=== PATIENT | male | born 1995 | race Caucasian/White ===

== ENCOUNTER 2020-06-23 04:08 | Emergency (ER) | payer OTHER, SELFPAY ==
--- NOTE | 2020-06-23 04:09 | ECG_ITS ---
Test Reason : CHEST PAIN Blood Pressure : / mmHG Vent. Rate : 088 BPM Atrial Rate : 088 BPM P-R Int : 138 ms QRS Dur : 120 ms QT Int : 374 ms P-R-T Axes : 048 020 011 degrees QTc Int : 452 ms Sinus rhythm with occasional Premature ventricular complexes RSR' or QR pattern in V1 suggests right ventricular conduction delay Abnormal ECG When compared with ECG of 11-FEB-2020 22:40, No significant change was found Referred By: Momo Neri Electronically Signed By:TESSA ALMARAZ
[2020-06-23 04:32] VITALS: BP 184/116; PULSE 90; RESP 16; TEMP 36.9; O2SAT 99; BMI 22.8
--- NOTE | 2020-06-23 04:32 | ED.ARRPALP ---
HPI - Arrhythmia/Palpitations General Chief Complaint: Chest Pain Stated Complaint: CHEST PAIN Time Seen by Provider: 06/23/20 04:49 Source: patient Mode of arrival: ambulatory Limitations: no limitations History of Present Illness HPI narrative: Started amliodipine a few days ago and now has not taken his medication. He can't sleep because of palpitations. He has had a holter monitor prior and diagnosed with PVC's MD complaint: heart racing , skipped beats and palpitations Onset (ago): hour(s) (8) Duration: intermittent Severity: moderate Context: occurred during rest Arrhythmia history: other (PVCs) Associated symptoms: denies other symptoms Related Data Previous Rx's Medication Instructions Recorded metoprolol succinate [Toprol XL] 50 mg PO DAILY #20 tab 06/23/20 Allergies Allergy/AdvReac Type Severity Reaction Status Date / Time No Known Allergies Allergy Unverified 06/09/20 16:19 Review of Systems Review of Systems: Yes all other systems are reviewed and are negative [facility] Social History Social History Advance Directives: No Advance Directives Information Provided: No Physical Exam Vital Signs and I&O and Narrative: Vital Signs and I&O: Vital Signs Temp 98.4 F 06/23/20 04:32 Pulse 80 06/23/20 05:30 Resp 14 06/23/20 05:30 BP 175/102 H 06/23/20 05:30 Pulse Ox 99 06/23/20 05:30 Intake & Output 06/22/20 06/22/20 06/23/20 06:59 18:59 06:59 Weight 64 kg Body Mass Index 22.7 Const: General: cooperative Nutritional Appearance: overweight Orientation/consciousness: patient oriented x3 Limitations: no limitations HENMT: Head: Yes normal to inspection Ears: hearing grossly normal bilaterally General nose exam: Normal external nose present Throat: Yes posterior oropharynx normal Neck: Neck: Yes normal visual inspection Chest: Chest palpation & inspection: normal inspection of the chest Resp: Effort & Inspection: normal respiratory effort Auscultation: clear to auscultation bilaterally Cardio: Rate: regular rate and Other (occaisional premature beats) Heart sounds: S1 normal heart sound present and S2 normal heart sound present GI: Inspection: Yes normal to inspection Palpation (GI): Soft to palpation and No hepatosplenomegaly present : General: Yes no CVA tenderness Back/Spine/Pelvis: Back: no CVA tenderness Skin: General skin exam: no rashes or lesions noted Neuro: General: patient oriented x3 Gait exam (Neuro): Normal gait present Motor exam (neuro): 5/5 motor strength present throughout Course Reevaluation(s) Reevaluation #1: blood pressure down, fewer PVCs will dc home MDM - Arrhythmia/Palpitations MDM Narrative Medical decision making narrative: EKG with RBBB and PVCs, no electrolyte abnormalities Differential Diagnosis Differential diagnosis: Likely palpitations and ventricular premature beats Lab Data Result diagrams: 06/23/20 05:24 06/23/20 05:24 Labs: Lab Results 06/23/20 06/23/20 Range/Units 05:24 05:24 WBC 12.2 H (4.8-10.8) X10*3/uL RBC 5.43 (4.60-5.80) X10*6/uL Hgb 15.0 (14.0-18.0) g/dl Hct 45.2 (42-52) % MCV 83.2 (80-98) fL MCH 27.6 (27.0-33.0) pg MCHC 33.2 (31.0-36.0) g/dl RDW 13.2 (11.0-16.0) % Plt Count 290 (160-400) X10*3/uL MPV 10.7 (9.4-12.4) fL Absolute Nucleated RBC 0.000 (0.0-0.012) X10*3/uL Nucleated RBC % (auto) 0.0 (0.0-0.2) /100WBC Sodium 140 (135-145) mmol/L Potassium 3.4 (3.3-5.1) mmol/l Chloride 104 (96-108) mmol/L Carbon Dioxide 26 (22-29) mmol/L Anion Gap 13 (12-20) BUN 10 (9-16) mg/dL Creatinine 0.81 (0.5-1.4) mg/dL Estim Creat Clear Calc 124.7 Estimated GFR > 60 Random Glucose 90 (60-115) mg/dL Calcium 9.1 (8.4-10.2) mg/dL Magnesium 2.2 (1.6-2.6) mg/dL Discharge Plan Discharge Clinical Impression: Heart palpitations, Beat, premature ventricular BP (high blood pressure) Qualifiers: Hypertension type: essential hypertension Qualified Code(s): I10 - Essential (primary) hypertension Patient Disposition: Home, Self-Care Instructions: Chronic Hypertension (ED) Additional Instructions: Call your physician today for followup Prescriptions: New metoprolol succinate [Toprol XL] 50 mg tablet extended release 24 hr 50 mg PO DAILY Qty: 20 RF: 0 EKG interpretations EKG EKG results cardiology: interpreted by ERMD, sinus rhythm, normal ST/T and no acute changes Blocks, axis, hypertrophy, ST abn AV and intraventricular conduction: right bundle branch block (fixed/intermittent, complete/incomplete)
[2020-06-23 04:44] VITALS: BMI 22.7
[2020-06-23] MEDS: Metoprolol Succinate ER 50 MG TAB.ER.24H PO (05:26)
[2020-06-23 05:30] VITALS: BP 175/102; PULSE 80; RESP 14; O2SAT 99
[2020-06-23 05:34] LABS: Hematocrit 45.2 % (42-52); Mean Corpuscular HGB Conc 33.2 g/dl (31.0-36.0); Mean Corpuscular Hemoglobin 27.6 pg (27.0-33.0); Mean Corpuscular Volume 83.2 fL (80-98); Mean Platelet Volume 10.7 fL (9.4-12.4); Platelet Count 290 X10*3/uL (160-400); Red Blood Count 5.43 X10*6/uL (4.60-5.80); Red Cell Distribution Width 13.2 % (11.0-16.0); White Blood Count 12.2 X10*3/uL (4.8-10.8)
[2020-06-23 05:58] LABS: Anion Gap 13 (12-20); Blood Urea Nitrogen 10 mg/dL (9-16); Calcium 9.1 mg/dL (8.4-10.2); Carbon Dioxide 26 mmol/L (22-29); Chloride 104 mmol/L (96-108); Creatinine Clr Calc Pharmacy 124.7; Estimated Glomerular Filt Rate > 60; Glucose Random 90 mg/dL (60-115); Magnesium 2.2 mg/dL (1.6-2.6); Potassium 3.4 mmol/l (3.3-5.1); Sodium 140 mmol/L (135-145)
[2020-06-23 07:15] VITALS: BP 173/108; PULSE 84; RESP 18
== END 2020-06-23 07:26 | disposition home or self-care (01) ==
PROVIDERS: Emergency Provider Emergency Medicine; PCP Physician Assistant
DX: I49.3 Ventricular premature depolarization (principal); R00.2 Palpitations; I45.10 Unspecified right bundle-branch block; I10 Essential (primary) hypertension
CPT/HCPCS: 36415; 80048; 83735; 85027; 93005; 93010; 99283

== ENCOUNTER 2020-08-05 11:58 | Outpatient (REF) | payer OTHER, SELFPAY ==
[2020-08-05 13:23] LABS: MANUAL DIFF FLAG NO
[2020-08-05 13:34] LABS: Basophils Percent Auto 0.4 % (0-2); Eosinophils Absolute Auto 0.1 X10*3/uL (0.0-0.4); Eosinophils Percent Auto 1.3 % (0-4); Hematocrit 44.6 % (42-52); Hemoglobin 14.6 g/dl (14.0-18.0); Imm Gran Abs Auto 0.11 X10*3/uL (0.00-0.03); Imm Gran Pct Auto 1.1 % (0.0-0.4); Lymphocytes Absolute Auto 2.2 X10*3/uL (1.2-4.9); Lymphocytes Percent Auto 22.1 % (20-40); Mean Corpuscular HGB Conc 32.7 g/dl (31.0-36.0); Mean Corpuscular Volume 85.6 fL (80-98); Mean Platelet Volume 10.9 fL (9.4-12.4); Monocytes Absolute Auto 0.8 X10*3/uL (0.1-1.2); Monocytes Percent Auto 7.6 % (2-11); Neutrophils Absolute Auto 6.8 X10*3/uL (2.0-8.3); Neutrophils Percent Auto 67.5 % (45-73); Platelet Count 263 X10*3/uL (160-400); Red Blood Count 5.21 X10*6/uL (4.60-5.80); Red Cell Distribution Width 13.1 % (11.0-16.0)
[2020-08-05 13:48] LABS: Estimated Average Glucose 100 mg/dL; Hemoglobin A1c % 5.1 %
[2020-08-05 14:01] LABS: Alanine Aminotransferase 30 U/L (0-40); Albumin Level 4.3 g/dL (3.5-5.0); Alkaline Phosphatase 109 U/L (39-117); Anion Gap 12 (12-20); Aspartate Amino Transferase 17 U/L (5-37); Bilirubin Total 0.5 mg/dL (0.0-1.0); Blood Urea Nitrogen 12 mg/dL (9-16); Calcium 8.3 mg/dL (8.4-10.2); Carbon Dioxide 29 mmol/L (22-29); Chloride 102 mmol/L (96-108); Estimated Glomerular Filt Rate > 60; Glucose Fasting 77 mg/dL (60-99); Potassium 4.1 mmol/l (3.3-5.1); Sodium 139 mmol/L (135-145)
[2020-08-05 14:22] LABS: TSH reflex Free T4 1.58 mIU/mL (0.32-4.0)
== END 2020-08-05 11:59 | disposition home or self-care (01) ==
LOC: HO.LAB 11:58
PROVIDERS: PCP Physician Assistant; Visit Provider Physician Assistant
DX: I10 Essential (primary) hypertension (principal)
CPT/HCPCS: 36415; 80053; 82043; 83036; 84443; 85025

== ENCOUNTER → 2020-09-12 14:47 | Outpatient (BNVA) | payer OTHER, SELFPAY | PROVIDERS: PCP Physician Assistant; Visit Provider Internal Medicine Cardiovascular Disease | DX: I10 Essential (primary) hypertension (principal); I49.3 Ventricular premature depolarization | CPT/HCPCS: 93005; 99202 ==

== ENCOUNTER → 2020-10-05 13:40 | Outpatient (REF) | payer OTHER, SELFPAY ==
--- NOTE | 2020-10-05 13:44 | CA_ITS ---
Transthoracic Echocardiogram Patient (Last, First, Middle): Doron Cano, Gender: Male Date of : 1995 Age: 25 Procedure Date: 10/05/2020 Procedure Type: Transthoracic Echocardiogram Location: OP Height: 167.64 cm Weight: 72.58 kg BSA: 1.82 m2 Heart Rate: bpm BP: 150 / 90 mmHg Adult Education Manager: ABELARDO Referring MD: Curt Parry MD Abstractor: Yoni Santana MD Symptoms: I10 - Essential (primary) hypertension Study Quality: Fair ECG Rhythm: Sinus Conclusions: - Essentially normal study Findings Left Ventricle Normal left ventricular size, thickness, and systolic function. The visually estimated ejection fraction is between 60-65%. There is no evidence of regional wall motion abnormalities. Diastolic function is normal for age. Right Ventricle Normal right ventricular cavity size and systolic function. Atria The left atrium is likely dilated. Interatrial shunt cannot be excluded. The right atrium is likely dilated. Aortic Valve The aortic valve structure and function is likely normal. There is no aortic valve stenosis. There is no aortic valve regurgitation. Mitral Valve Normal mitral valve structure and function. There is trace mitral valve regurgitation. There is no mitral valve stenosis. Pulmonic Valve The pulmonic valve was not well visualized. Tricuspid Valve Likely normal tricuspid valve structure and function. There is trace tricuspid valve regurgitation. The right ventricular systolic pressure is normal. The right ventricular systolic pressure is 33 mmHg. There is no evidence of pulmonary hypertension. Great Vessels All visible segments of the aorta are normal in size. The pulmonary artery was not well visualized. Venous The inferior vena cava was not well visualized. Pericardium/Pleural There is no evidence of pericardial effusion. Prior Study Comparison No significant change compared to prior study dated: 09/02/2015. Measurements 2D Linear Measurements IVSd: 1.20 0.6-0.9/0.6-1.0 cm LVIDd: 4.68 3.9-5.3/4.2-5.9 cm LVIDd Index: 2.57 2.4-3.2/2.2-3.1 cm/m2 LVIDs: 3.18 2.0-3.6 cm LVPWd: 1.04 0.7-1.1 cm Ao Root: 2.60 2.1-3.5 cm LA Diam: 3.60 2.7-3.8/3.0-4.0 cm LAIDs Index: 1.98 1.5-2.3 cm/m2 LV Mass: 238.03 67-162/88-224 g LV Mass Index: 130.78 43-95/49-115 g/m2 LVOT Diam: 2.10 3.0+(-)1.3 cm 2D Systolic Function EF 4C: 59.90 >55% EF 2C: 56.90 >55% EF BiP: 57.00 >55% Mitral Valve MV Pk E: 0.80 MV PK A: 0.31 MV Decel Time: 193.00 E/A: 2.60 E'Lateral: 13.30 E'Medial: 11.20 E/E' Med: 7.10 E/E' Lat: 6.00 PHT: 56.00 MVA PHT: 3.93 Decel Alpine: 4.15 Aortic Valve AoV Pk Adam: 1.26 AoV Pk Grad: 6.00 LVOT LVOT Pk Adam: 1.00 LVOT Mn Adam: 0.67 LVOT VTI: 0.20 LVOT Pk Grad: 4.00 LVOT Mn Grad: 2.00 LVOT Diam: 2.10 LVOT Area: 3.46 Diastolic Function MV Pk E: 0.80 MV Pk A: 0.31 E/A: 2.60 E'Medial: 11.20 E/E' Med: 7.10 E' Laterial: 13.30 E/E' Lat: 6.00 Tricuspid Valve TR Pk Adam: 2.73 TR Pk Grad: 30.00 RA Press: 3.00 RVSP: 33.00 Great Vessels Aorta Ao Root-2D: 2.60 2.0-3.7 cm Ao Asc: 2.60 2.1-3.4 cm Updated in Other Vendor System with Status of Final Yoni Santana MD electronically signed on 10/06/2020 9:08:18 AM with status of Final
== END ==
LOC: HO.CARD 13:40
PROVIDERS: Visit Provider Internal Medicine Cardiovascular Disease
DX: I10 Essential (primary) hypertension (principal)
CPT/HCPCS: 93306; Q9957

== ENCOUNTER 2020-10-10 08:36 | Outpatient (REF) | payer OTHER, SELFPAY ==
--- NOTE | 2020-10-10 | US_ITS ---
EXAMINATION: US RENAL AND US DOPPLER RETROPERITONEAL LIMITED (RENAL ONLY) CLINICAL INFORMATION: Essential hypertension COMPARISON: None TECHNIQUE: Routine renal ultrasound followed by retroperitoneal renal and aorta Doppler was performed. FINDINGS: RIGHT KIDNEY: 12.6 x 4.7 x 5.2 cm (SAG x AP x TRV). The kidney is normal in size, contour, and echogenicity. Renal cortical thickness is normal. No calculi or focal parenchymal lesions. No hydronephrosis. LEFT KIDNEY: 11.0 x 6.3 x 4.8 cm cm (SAG x AP x TRV). The kidney is normal in size, contour, and echogenicity. Renal cortical thickness is normal. No calculi or focal parenchymal lesions. No hydronephrosis. RENAL DOPPLER: RIGHT KIDNEY: Renal artery velocity proximal measures 114 cm/s; mid segment measures 221 cm/s; distal segment measures 192 cm/s. Renal aortic ratio cannot be obtained as peak systolic velocity of aorta measures 131 cm/s and cannot be used to calculate the ratio. The average segmental resistive index measures 0.71. LEFT KIDNEY: Renal artery velocity proximal segment measures 105 cm/s; mid segment measures 159 cm/s; distal segment measures 186 cm/s. Renal aortic ratio cannot be calculated. The average segmental resistive index measures 0.69. US/US renal BI IMPRESSION: 1. Unremarkable renal ultrasound. 2. Slightly elevated velocity in mid segment right renal artery but normal resistive index. This could be secondary to renal parenchymal disease. 3. There is no significant stenosis in the left renal artery. The parameters are normal.
--- NOTE | 2020-10-10 08:42 | US_ITS ---
EXAMINATION: ULTRASOUND RENAL DOPPLER US/US renal doppler FINDINGS/IMPRESSION: Ultrasound renal Doppler is dictated with ultrasound kidneys.
== END 2020-10-10 08:37 | disposition home or self-care (01) ==
LOC: HO.US 08:36
PROVIDERS: Visit Provider Internal Medicine Cardiovascular Disease
DX: I10 Essential (primary) hypertension (principal)
CPT/HCPCS: 76775; 93975

== ENCOUNTER → 2020-11-30 14:12 | Outpatient (BNVA) | payer OTHER, SELFPAY | PROVIDERS: PCP Physician Assistant; Visit Provider Internal Medicine Cardiovascular Disease | DX: I10 Essential (primary) hypertension (principal) | CPT/HCPCS: 99212 ==

== ENCOUNTER 2020-12-28 13:24 | Outpatient (REF) | payer OTHER, SELFPAY ==
[2020-12-28 13:53] LABS: COVID-19 Test Negative (Negative)
== END 2020-12-28 13:25 | disposition home or self-care (01) ==
LOC: HO.LAB 13:24
PROVIDERS: Visit Provider Internal Medicine
DX: Z20.822 Contact with and (suspected) exposure to COVID-19 (principal)
CPT/HCPCS: 36415; 87635; C9803

== ENCOUNTER 2021-01-08 08:24 | Emergency (ER) | payer OTHER, SELFPAY ==
--- NOTE | 2021-01-08 | ECG_ITS ---
Test Reason : CHEST PAIN Blood Pressure : / mmHG Vent. Rate : 081 BPM Atrial Rate : 081 BPM P-R Int : 140 ms QRS Dur : 112 ms QT Int : 374 ms P-R-T Axes : 061 018 025 degrees QTc Int : 434 ms Normal sinus rhythm Incomplete right bundle branch block Borderline ECG When compared with ECG of 23-JUN-2020 04:09, Premature ventricular complexes are no longer Present Referred By: Generic ED Physician Electronically Signed By:Curt Parry
--- NOTE | ~2021-01-08 | XR_ITS ---
EXAMINATION: XR CHEST CLINICAL INFORMATION: Chest pain. COMPARISON: None TECHNIQUE: 2 views of the chest were obtained. FINDINGS: No significant abnormality is noted involving the heart, lungs, mediastinum, bony thorax or soft tissues. XR/XR chest 2V IMPRESSION: Unremarkable examination.
[2021-01-08 08:27] VITALS: BP 181/104; PULSE 88; RESP 15; TEMP 37.2; O2SAT 98; BMI 42.7
[2021-01-08 10:28] VITALS: BP 176/95; PULSE 79; RESP 16; O2SAT 96
--- NOTE | 2021-01-08 12:09 | ED.ARRPALP ---
HPI - Arrhythmia/Palpitations General Chief Complaint: Arrhythmia/Palpitations Stated Complaint: PALPATIONS Time Seen by Provider: 01/08/21 08:37 Source: patient Mode of arrival: ambulatory Limitations: no limitations History of Present Illness HPI narrative: 26-year-old male with a past medical history of hypertension here with complaints of a rapid, pounding heartbeat with some chest discomfort since 02:00. The patient tells me it woke him from his sleep. He had no associated shortness of breath, nausea, diaphoresis. His symptoms continued and so he brought himself to the emergency department. He is also complaining of a generalized headache but did not take his blood pressure medications this morning. No vision changes, nausea, vomiting. The patient tells me that he has had symptoms of a fast or pounding heartbeat for quite some time and has been seen by Cardiology. He tells me he has an upcoming appointment to have a Holter monitor on January 16. He has had blood work, echocardiogram with unknown cause per patient. Due to uncontrolled hypertension he has also had a renal ultrasound which showed no evidence of renal artery stenosis. He is currently taking lisinopril 40 mg and metoprolol 100 mg. His dose of lisinopril was increased [address] Parry by cardiology. Denies fevers, chills. His mom recently had COVID-19 but he was tested and he is negative. No leg swelling or pain. No recent travel or sick exposure. Denies anxiety or stress. MD complaint: rapid heart beat and heart racing Related Data Previous Rx's Medication Instructions Recorded lisinopril 40 mg tablet 40 mg PO DAILY #60 tab 11/30/20 omeprazole 20 mg capsule,delayed 20 mg PO DAILY #30 cap 12/04/20 release metoprolol succinate 100 mg 100 mg PO DAILY #90 tab 12/30/20 tablet,extended release 24 hr Allergies Allergy/AdvReac Type Severity Reaction Status Date / Time amlodipine AdvReac Chest Pain Verified 11/16/20 17:45 Review of Systems Review of Systems: Yes all other systems are reviewed and are negative Constitutional: Constitutional: Reports no additional constitutional complaints, Denies body ache(s), Denies chills, Denies fever(s), Reports headache(s) and Denies weakness Eyes: Eyes: Reports no additional eye complaints and Denies change in vision ENT: Reports system reviewed and no additional complaints, except as documented, Denies dizziness, Reports headache(s), Denies nasal congestion, Denies nasal discharge and Denies neck pain Cardiovascular: Cardiovascular: Reports no additional cardiovascular complaints, Denies chest pain, Denies leg edema, Reports palpitations and Denies dyspnea Respiratory: Respiratory: Reports no additional respiratory complaints, Denies cough and Denies dyspnea Gastrointestinal: Gastrointestinal: Reports no additional gastrointestinal complaints, Denies abdominal pain, Denies diarrhea, Denies nausea and Denies vomiting Genitourinary: Genitourinary: Denies urinary incontinence Musculoskeletal: Musculoskeletal: Reports no additional musculoskeletal complaints, Denies back pain, Denies arthralgias, Denies joint swelling, Denies neck pain, Denies numbness and Denies tingling Integumentary/Breasts: Skin/Breast: Reports system reviewed and no additional complaints, except as docu and Denies rash Neurologic: Reports system reviewed and no additional complaints, except as documented, Denies Abnormal speech present, Denies dizziness, Reports headache(s), Denies numbness, Denies tingling and Denies weakness Endocrine: Endocrine: Reports palpitations PMFSH Past Medical History Attestation statement: The following information was validated with the patient. Source: old records reviewed and nursing notes reviewed Surgical History History of hernia surgery No pertinent past surgical history [place] teeth removed Family History Family History Father ADHD HTN (hypertension) CAD (coronary artery disease) Hyperlipidemia Insomnia Dysautonomia Mother Eczema Migraines Social History Social History Alcohol intake: never Smoking Status: Never smoker Use of substances other than those prescribed or required for medical reasons: No Advance Directives: Yes Advance Directives Information Provided: No Advance Directives on File: No Physical Exam Vital Signs: Vital Signs: Last Vital Signs Temp 99.0 F 01/08/21 08:27 Pulse 85 01/08/21 13:20 Resp 16 01/08/21 13:20 BP 141/77 H 01/08/21 13:20 Pulse Ox 98 01/08/21 13:20 Body Mass Index 42.7 Const: General: cooperative, healthy appearing, comfortable and no acute distress Orientation/consciousness: patient oriented x3 Limitations: no limitations HENMT: Head: Yes normal to inspection Ears: hearing grossly normal bilaterally General nose exam: Normal external nose present Face and sinus: Yes normal facial exam Mouth: Normal oral and palatal mucosa present Throat: Yes posterior oropharynx normal Eyes: General: appearance normal, both eyes and all related structures Pupils: Equal, round and reactive pupils present Neck: Neck: Yes normal visual inspection Chest: Chest palpation & inspection: normal inspection of the chest Resp: Effort & Inspection: normal respiratory effort Auscultation: clear to auscultation bilaterally Cardio: Rate: regular rate Rhythm: regular rhythm Peripheral pulses: Peripheral pulses 2+ throughout GI: Inspection: Yes normal to inspection Palpation (GI): Soft to palpation and nontender Auscultation: normal bowel sounds Back/Spine/Pelvis: Thoracic/Lumbar Spine: thoracic and lumbar spine normal to inspection Skin: General skin exam: no rashes or lesions noted Neuro: General: patient oriented x3, no focal motor deficits and normal sensation to monofilament Cranial nerves: Yes Equal, round and reactive pupils present Cognition (Neuro): normal cognition Speech: No Abnormal speech present Gait exam (Neuro): Normal gait present Motor exam (neuro): 5/5 motor strength present throughout Extrem: General: Yes normal to inspection, Yes no pedal edema and Yes no calf tenderness Course Course Course Narrative: 26-year-old male here with complaints of a rapid, pounding heart rate since 02:00 which woke him from his sleep. On arrival the patient has a heart rate of 70 and regular. He does appear slightly anxious on arrival. He is hypertensive but did not take his morning high blood pressure medications. His symptoms of rapid and pounding heart rate seem to be going on for quite some time. He is followed by kiss machine operator and has an upcoming Holter monitor the end of this month. Will check labs, EKG, chest x-ray. Will give him his home medications for his blood pressure and reassess. 1315-labs are unremarkable. EKG shows no ischemic changes. Chest x-ray unremarkable. Blood pressure improved with his home medications to 141/77 from 175/99. Heart rate has been 70s to 80s with no ectopy here during his ED stay. Patient tells me that his symptoms have improved with his blood pressure trending down but he still does have some mild symptoms. He has a scheduled appointment with Cardiology and a Holter to be placed. I think that anxiety also is contributing to some of his symptoms. The patient was offered a low dose of antianxiety medications but he refused this. Reviewed worrisome signs and symptoms and when to return to the emergency department. Comfortable discharge home. MDM - Arrhythmia/Palpitations Medical Records Attestation: I reviewed the patient's medical records. Lab Data Attestation: I reviewed the patient's lab results. Result diagrams: 01/08/21 12:27 01/08/21 12: Labs: Lab Results 01/08/21 01/08/21 01/08/21 Range/Units 12: 12: 12:27 WBC 6.3 (4.8-10.8) X10*3/uL RBC 5.26 (4.60-5.80) X10*6/uL Hgb 14.9 (14.0-18.0) g/dl Hct 45.4 (42-52) % MCV 86.3 (80-98) fL MCH 28.3 (27.0-33.0) pg MCHC 32.8 (31.0-36.0) g/dl RDW 13.0 (11.0-16.0) % Plt Count 185 D (160-400) X10*3/uL MPV 10.1 (9.4-12.4) fL Immature Gran % (Auto) 0.6 H (0.0-0.4) % Neut % (Auto) 66.3 (45-73) % Lymph % (Auto) 18.6 L (20-40) % [place] % (Auto) 13.9 H (2-11) % Eos % (Auto) 0.3 (0-4) % Baso % (Auto) 0.3 (0-2) % Lymph # (Auto) 1.2 (1.2-4.9) X10*3/uL [place] # (Auto) 0.9 (0.1-1.2) X10*3/uL Eos # (Auto) 0.0 (0.0-0.4) X10*3/uL Baso # (Auto) 0.0 (0.0-0.2) X10*3/uL Abs Immat Gran (auto) 0.04 H (0.00-0.03) X10*3/uL Absolute Neuts (auto) 4.2 (2.0-8.3) X10*3/uL Absolute Nucleated RBC 0.000 (0.0-0.012) X10*3/uL Nucleated RBC % (auto) 0.0 (0.0-0.2) /100WBC Hold Blue Top SEE NOTE Sodium 141 (135-145) mmol/L Potassium 3.8 (3.3-5.1) mmol/L Chloride 101 (96-108) mmol/L Carbon Dioxide 27 (22-29) mmol/L Anion Gap 17 (12-20) BUN 16 (9-16) mg/dL Creatinine 0.79 (0.5-1.4) mg/dL Estim Creat Clear Calc 171.4 Estimated GFR > 60 Random Glucose 87 (60-115) mg/dL Calcium 9.5 D (8.4-10.2) mg/dL Magnesium 2.2 (1.6-2.6) mg/dL Total Bilirubin 0.4 (0.0-1.0) mg/dL Direct Bilirubin 0.2 (0.0-0.5) mg/dL AST 13 (5-37) U/L ALT 22 (0-40) U/L Alkaline Phosphatase 102 (39-117) U/L Troponin I High Sens (<3.5-35.0) ng/L Total Protein 7.2 (6.5-8.0) g/dL Albumin 4.5 (3.5-5.0) g/dL TSH 2.05 (0.32-4.0) uIU/mL 01/08/21 Range/Units 12:27 WBC (4.8-10.8) X10*3/uL RBC (4.60-5.80) X10*6/uL Hgb (14.0-18.0) g/dl Hct (42-52) % MCV (80-98) fL MCH (27.0-33.0) pg MCHC (31.0-36.0) g/dl RDW (11.0-16.0) % Plt Count (160-400) X10*3/uL MPV (9.4-12.4) fL Immature Gran % (Auto) (0.0-0.4) % Neut % (Auto) (45-73) % Lymph % (Auto) (20-40) % [place] % (Auto) (2-11) % Eos % (Auto) (0-4) % Baso % (Auto) (0-2) % Lymph # (Auto) (1.2-4.9) X10*3/uL [place] # (Auto) (0.1-1.2) X10*3/uL Eos # (Auto) (0.0-0.4) X10*3/uL Baso # (Auto) (0.0-0.2) X10*3/uL Abs Immat Gran (auto) (0.00-0.03) X10*3/uL Absolute Neuts (auto) (2.0-8.3) X10*3/uL Absolute Nucleated RBC (0.0-0.012) X10*3/uL Nucleated RBC % (auto) (0.0-0.2) /100WBC Hold Blue Top Sodium (135-145) mmol/L Potassium (3.3-5.1) mmol/L Chloride (96-108) mmol/L Carbon Dioxide (22-29) mmol/L Anion Gap (12-20) BUN (9-16) mg/dL Creatinine (0.5-1.4) mg/dL Estim Creat Clear Calc Estimated GFR Random Glucose (60-115) mg/dL Calcium (8.4-10.2) mg/dL Magnesium (1.6-2.6) mg/dL Total Bilirubin (0.0-1.0) mg/dL Direct Bilirubin (0.0-0.5) mg/dL AST (5-37) U/L ALT (0-40) U/L Alkaline Phosphatase (39-117) U/L Troponin I High Sens < 3.5 (<3.5-35.0) ng/L Total Protein (6.5-8.0) g/dL Albumin (3.5-5.0) g/dL TSH (0.32-4.0) uIU/mL Imaging Data Chest x-ray: Attestation: I personally reviewed and interpreted this imaging study as follows: Radiologist's impression: EXAMINATION: XR CHEST CLINICAL INFORMATION: Chest pain. COMPARISON: None TECHNIQUE: 2 views of the chest were obtained. FINDINGS: No significant abnormality is noted involving the heart, lungs, mediastinum, bony thorax or soft tissues. XR/XR chest 2V IMPRESSION: Unremarkable examination. ECG Data Attestation: I personally reviewed and interpreted this ECG as follows: ECG interpretation date: 01/08/21 ECG interpretation time: 08:43 Interpretation: Normal sinus rhythm with a rate of 81, normal CO, normal QRS, normal QT Discharge Plan Discharge Clinical Impression: HTN (hypertension), Palpitations Patient Disposition: Home, Self-Care Instructions: Heart Palpitations (ED), Hypertension (ED) Additional Instructions: Your blood pressure improved here after taking your scheduled medications. Your blood work, EKG and x-ray all looked unremarkable. Please keep your appointment with Cardiology and for your Holter monitor to be placed. Call your kiss machine operator tomorrow and let him know you were here. Prescriptions: No Action omeprazole 20 mg capsule,delayed release(DR/EC) 20 mg PO DAILY Qty: 30 RF: 3 metoprolol succinate 100 mg tablet extended release 24 hr 100 mg PO DAILY Qty: 90 RF: 0 lisinopril 40 mg tablet 40 mg PO DAILY Qty: 60 RF: 3 Referrals: Curt Parry MD [Physician] - 2 days Interventions: ED Discharge Assessment Last Done: 01/08/21 13:49 Discharge Date/Time: 01/08/21 13:50
[2021-01-08 12:15] VITALS: BP 176/95; PULSE 79
[2021-01-08] MEDS: Metoprolol Succinate ER 100 MG TAB.ER.24H PO (12:15)
[2021-01-08] MEDS: lisinopriL 40 MG TABLET PO (12:15)
[2021-01-08 12:31] LABS: MANUAL DIFF FLAG NO
[2021-01-08 12:32] LABS: Basophils Percent Auto 0.3 % (0-2); Eosinophils Percent Auto 0.3 % (0-4); Hematocrit 45.4 % (42-52); Hemoglobin 14.9 g/dl (14.0-18.0); Imm Gran Abs Auto 0.04 X10*3/uL (0.00-0.03); Imm Gran Pct Auto 0.6 % (0.0-0.4); Lymphocytes Absolute Auto 1.2 X10*3/uL (1.2-4.9); Lymphocytes Percent Auto 18.6 % (20-40); Mean Corpuscular HGB Conc 32.8 g/dl (31.0-36.0); Mean Corpuscular Hemoglobin 28.3 pg (27.0-33.0); Mean Corpuscular Volume 86.3 fL (80-98); Mean Platelet Volume 10.1 fL (9.4-12.4); Monocytes Absolute Auto 0.9 X10*3/uL (0.1-1.2); Monocytes Percent Auto 13.9 % (2-11); Neutrophils Absolute Auto 4.2 X10*3/uL (2.0-8.3); Neutrophils Percent Auto 66.3 % (45-73); Platelet Count 185 X10*3/uL (160-400); Red Blood Count 5.26 X10*6/uL (4.60-5.80); White Blood Count 6.3 X10*3/uL (4.8-10.8)
[2021-01-08 13:03] LABS: Alanine Aminotransferase 22 U/L (0-40); Albumin Level 4.5 g/dL (3.5-5.0); Alkaline Phosphatase 102 U/L (39-117); Anion Gap 17 (12-20); Aspartate Amino Transferase 13 U/L (5-37); Bilirubin Direct 0.2 mg/dL (0.0-0.5); Bilirubin Total 0.4 mg/dL (0.0-1.0); Blood Urea Nitrogen 16 mg/dL (9-16); Calcium 9.5 mg/dL (8.4-10.2); Carbon Dioxide 27 mmol/L (22-29); Chloride 101 mmol/L (96-108); Creatinine Clr Calc Pharmacy 171.4; Estimated Glomerular Filt Rate > 60; Glucose Random 87 mg/dL (60-115); Magnesium 2.2 mg/dL (1.6-2.6); Potassium 3.8 mmol/L (3.3-5.1); Sodium 141 mmol/L (135-145); Total Protein 7.2 g/dL (6.5-8.0)
[2021-01-08 13:09] LABS: Troponin-I High Sensitivity < 3.5 ng/L (<3.5-35.0)
[2021-01-08 13:20] VITALS: BP 141/77; PULSE 85; RESP 16; O2SAT 98
[2021-01-08 13:23] LABS: Thyroid Stimulating Hormone 2.05 uIU/mL (0.32-4.0)
== END 2021-01-08 13:50 | disposition home or self-care (01) ==
PROVIDERS: Nurse Practitioner Family; Emergency Provider Emergency Medicine; PCP Physician Assistant
DX: R00.2 Palpitations (principal); R07.9 Chest pain, unspecified; I10 Essential (primary) hypertension; Z79.899 Other long term (current) drug therapy
CPT/HCPCS: 36415; 71046; 80048; 80076; 83735; 84443; 84484; 85025; 93005; 99284; 99285

== ENCOUNTER 2021-01-10 14:30 | Outpatient (REF) | payer OTHER, SELFPAY ==
[2021-01-10 14:46] LABS: COVID-19 Test Positive (Negative)
== END 2021-01-10 14:31 | disposition home or self-care (01) ==
LOC: HO.LAB 14:30
PROVIDERS: Visit Provider Internal Medicine
DX: Z20.822 Contact with and (suspected) exposure to COVID-19 (principal)
CPT/HCPCS: 36415; 87635; C9803

== ENCOUNTER 2021-01-23 13:43 | Outpatient (REF) | payer OTHER, SELFPAY ==
[2021-01-26 06:21] LABS: Metanephrine, Free 58 pg/mL (<=57); Normetanephrines, Free 82 pg/mL (<=148); Total Metanephrine, Free 140 pg/mL (<=205)
[2021-01-30 05:17] LABS: Renin 1.19 ng/mL/h (0.25-5.82)
== END 2021-01-23 13:44 | disposition home or self-care (01) ==
LOC: HO.LAB 13:43
PROVIDERS: PCP Physician Assistant; Referring Provider Physician Assistant; Visit Provider Internal Medicine Cardiovascular Disease
DX: R00.2 Palpitations (principal); I10 Essential (primary) hypertension
CPT/HCPCS: 36415; 82088; 83835; 84244; 99212

== ENCOUNTER → 2021-01-31 09:36 | Outpatient (BNVA) | payer OTHER, SELFPAY | PROVIDERS: PCP Physician Assistant; Referring Provider Physician Assistant; Visit Provider Psychiatry & Neurology Neurology | DX: G47.33 Obstructive sleep apnea (adult) (pediatric) (principal) | CPT/HCPCS: 99202 ==

== ENCOUNTER → 2021-02-13 13:42 | Outpatient (BNVA) | payer OTHER, SELFPAY | PROVIDERS: PCP Physician Assistant; Referring Provider Physician Assistant; Visit Provider Internal Medicine Cardiovascular Disease | DX: G47.33 Obstructive sleep apnea (adult) (pediatric) (principal); R00.2 Palpitations; I10 Essential (primary) hypertension | CPT/HCPCS: 99212 ==

== ENCOUNTER 2021-03-06 10:12 | Outpatient (REF) | payer OTHER, SELFPAY ==
--- NOTE | ~2021-03-06 | XR_ITS ---
EXAMINATION: XR FOOT, RIGHT CLINICAL INFORMATION: Pain right foot. COMPARISON: Radiographs right ankle 01/19/2010, right foot 06/19/2007 TECHNIQUE: AP, lateral, and oblique views of the right foot. FINDINGS: There is no acute or healing fracture, dislocation, destructive process. Bony mineralization is normal. There is a bunion at the medial first MTP. There is no definite joint narrowing, and no erosive change or visible chondrocalcinosis. The subtalar joint is unremarkable. The retrocalcaneal recess is preserved. There is a tiny borderline posterior calcaneal spur. XR/XR foot RT min 3V IMPRESSION: 1. Bunion first MTP. 2. Borderline posterior calcaneal spur.
== END 2021-03-06 10:13 | disposition home or self-care (01) ==
LOC: HO.HMGCX 10:12
PROVIDERS: PCP Physician Assistant; Visit Provider Hospitalist
DX: M79.671 Pain in right foot (principal)
CPT/HCPCS: 73630

== ENCOUNTER → 2021-03-14 10:50 | Outpatient (BNVA) | payer OTHER, SELFPAY | PROVIDERS: PCP Physician Assistant; Referring Provider Physician Assistant; Visit Provider Nurse Practitioner Family | DX: G47.33 Obstructive sleep apnea (adult) (pediatric) (principal) | CPT/HCPCS: 99212 ==

== ENCOUNTER → 2021-03-20 12:50 | Outpatient (BNVA) | payer OTHER, SELFPAY | PROVIDERS: PCP Physician Assistant; Referring Provider Physician Assistant; Visit Provider Internal Medicine Cardiovascular Disease | DX: I10 Essential (primary) hypertension (principal); I49.3 Ventricular premature depolarization | CPT/HCPCS: 93005; 99212 ==

== ENCOUNTER → 2021-06-12 12:44 | Outpatient (BNVA) | payer OTHER, SELFPAY | PROVIDERS: PCP Physician Assistant; Referring Provider Physician Assistant; Visit Provider Internal Medicine Cardiovascular Disease | DX: I49.3 Ventricular premature depolarization (principal); I10 Essential (primary) hypertension; R00.2 Palpitations | CPT/HCPCS: 99212 ==

== ENCOUNTER 2021-08-29 09:06 | Outpatient (REF) | payer OTHER, SELFPAY ==
[2021-08-29 10:12] LABS: Hematocrit 42.5 % (42.0-52.0); Hemoglobin 13.9 g/dl (14.0-18.0); Mean Corpuscular HGB Conc 32.7 g/dl (31.0-36.0); Mean Corpuscular Hemoglobin 28.2 pg (27.0-33.0); Mean Corpuscular Volume 86.2 fL (80.0-98.0); Mean Platelet Volume 10.7 fL (9.4-12.4); Platelet Count 261 X10*3/uL (160-400); Red Blood Count 4.93 X10*6/uL (4.60-5.80); Red Cell Distribution Width 12.8 % (11.0-16.0); White Blood Count 11.3 X10*3/uL (4.8-10.8)
[2021-08-29 10:36] LABS: Creatinine Urine 306.96 mg/dL; Microalbum/Creatinine Ratio Ur 4.8 ug/mg cr
[2021-08-29 10:59] LABS: TSH reflex Free T4 1.82 uIU/mL (0.32-4.0)
[2021-08-29 11:05] LABS: Alanine Aminotransferase 26 U/L (0-40); Albumin Level 4.5 g/dL (3.5-5.0); Alkaline Phosphatase 92 U/L (39-117); Anion Gap 16 (12-20); Aspartate Amino Transferase 16 U/L (5-37); Bilirubin Total 0.7 mg/dL (0.0-1.0); Blood Urea Nitrogen 17 mg/dL (9-16); Calcium 9.7 mg/dL (8.4-10.2); Carbon Dioxide 27 mmol/L (22-29); Chloride 102 mmol/L (96-108); Cholesterol 217 mg/dL; Estimated Glomerular Filt Rate > 60; Glucose Fasting 86 mg/dL (60-99); HDL Cholesterol 48 mg/dL; LDL Cholesterol Calculated 143 mg/dl; Potassium 4.1 mmol/L (3.3-5.1); Sodium 141 mmol/L (135-145); Total Protein 7.4 g/dL (6.5-8.0); Triglycerides 130 mg/dL
== END 2021-08-29 09:07 | disposition home or self-care (01) ==
LOC: HO.LAB 09:06
PROVIDERS: PCP Physician Assistant; Visit Provider Physician Assistant
DX: I10 Essential (primary) hypertension (principal); E66.09 Other obesity due to excess calories; Z68.39 Body mass index [BMI] 39.0-39.9, adult
CPT/HCPCS: 36415; 80053; 80061; 82043; 84443; 85027

== ENCOUNTER → 2021-09-05 11:29 | Outpatient (BNVA) | payer OTHER, SELFPAY | PROVIDERS: PCP Physician Assistant; Referring Provider Physician Assistant; Visit Provider Nurse Practitioner Family | DX: G47.33 Obstructive sleep apnea (adult) (pediatric) (principal) | CPT/HCPCS: 99212 ==

== ENCOUNTER 2021-09-28 08:17 | Outpatient (REF) | payer OTHER, SELFPAY ==
[2021-09-28 11:57] LABS: Binax Now Covid-19 Ag Negative (Negative)
[2021-09-28 11:58] LABS: Binax Internal Control QC Valid
== END 2021-09-28 08:18 | disposition home or self-care (01) ==
LOC: HO.LAB 08:17
PROVIDERS: Visit Provider Internal Medicine
DX: Z20.822 Contact with and (suspected) exposure to COVID-19 (principal)
CPT/HCPCS: 36415; C9803

== ENCOUNTER → 2021-10-09 13:04 | Outpatient (BNVA) | payer OTHER, SELFPAY | PROVIDERS: PCP Physician Assistant; Referring Provider Physician Assistant; Visit Provider Internal Medicine Cardiovascular Disease | DX: I49.3 Ventricular premature depolarization (principal); I10 Essential (primary) hypertension; R00.2 Palpitations | CPT/HCPCS: 99212 ==

== ENCOUNTER 2022-02-27 10:35 | Outpatient (REF) | payer OTHER, SELFPAY ==
[2022-02-27 11:51] LABS: Hematocrit 40.4 % (42.0-52.0); Hemoglobin 12.9 g/dl (14.0-18.0); Mean Corpuscular HGB Conc 31.9 g/dl (31.0-36.0); Mean Corpuscular Hemoglobin 27.7 pg (27.0-33.0); Mean Corpuscular Volume 86.7 fL (80.0-98.0); Mean Platelet Volume 10.1 fL (9.4-12.4); Platelet Count 256 X10*3/uL (160-400); Red Blood Count 4.66 X10*6/uL (4.60-5.80); Red Cell Distribution Width 13.3 % (11.0-16.0); White Blood Count 10.9 X10*3/uL (4.8-10.8)
[2022-02-27 12:20] LABS: Alanine Aminotransferase 22 U/L (0-40); Albumin Level 4.3 g/dL (3.5-5.0); Alkaline Phosphatase 99 U/L (39-117); Anion Gap 14 (12-20); Aspartate Amino Transferase 13 U/L (5-37); Bilirubin Total 0.3 mg/dL (0.0-1.0); Blood Urea Nitrogen 16 mg/dL (9-16); Calcium 9.1 mg/dL (8.4-10.2); Carbon Dioxide 27 mmol/L (22-29); Chloride 102 mmol/L (96-108); Cholesterol 209 mg/dL; Estimated Glomerular Filt Rate > 60; Glucose Fasting 94 mg/dL (60-99); HDL Cholesterol 48 mg/dL; LDL Cholesterol Calculated 139 mg/dl; Potassium 3.9 mmol/L (3.3-5.1); Sodium 139 mmol/L (135-145); Total Protein 7.2 g/dL (6.5-8.0); Triglycerides 112 mg/dL
[2022-02-27 12:28] LABS: TSH reflex Free T4 1.83 uIU/mL (0.32-4.0)
[2022-02-27 14:08] LABS: Creatinine Urine 92.17 mg/dL; Microalbumin Urine < 5.0 mg/L
[2022-03-06 11:01] LABS: Aldosterone/Renin Ratio 1.4 Ratio (0.9-28.9); Plasma Renin Activity 2.92 ng/mL/h (0.25-5.82)
== END 2022-02-27 10:36 | disposition home or self-care (01) ==
LOC: HO.LAB 10:35
PROVIDERS: PCP Physician Assistant; Visit Provider Physician Assistant
DX: G47.33 Obstructive sleep apnea (adult) (pediatric) (principal); I10 Essential (primary) hypertension
CPT/HCPCS: 36415; 80053; 80061; 82043; 82088; 84443; 85027; 99212

== ENCOUNTER → 2022-04-09 14:29 | Outpatient (BNVA) | payer OTHER, SELFPAY | PROVIDERS: PCP Physician Assistant; Visit Provider Nurse Practitioner Family | DX: I10 Essential (primary) hypertension (principal); I49.3 Ventricular premature depolarization; E66.09 Other obesity due to excess calories; Z68.42 Body mass index [BMI] 45.0-49.9, adult; G47.33 Obstructive sleep apnea (adult) (pediatric); Z99.89 Dependence on other enabling machines and devices; Z79.899 Other long term (current) drug therapy | CPT/HCPCS: 99212 ==

== ENCOUNTER 2022-12-11 15:49 | Outpatient (REF) | payer OTHER, SELFPAY ==
[2022-12-11 17:11] LABS: Hematocrit 41.8 % (42.0-52.0); Mean Corpuscular HGB Conc 33.5 g/dl (31.0-36.0); Mean Corpuscular Hemoglobin 27.9 pg (27.0-33.0); Mean Corpuscular Volume 83.4 fL (80.0-98.0); Mean Platelet Volume 10.5 fL (9.4-12.4); Platelet Count 260 X10*3/uL (160-400); Red Blood Count 5.01 X10*6/uL (4.60-5.80); White Blood Count 10.2 X10*3/uL (4.8-10.8)
[2022-12-11 17:41] LABS: Creatinine Urine 310.15 mg/dL; Microalbum/Creatinine Ratio Ur 4.5 ug/mg cr
[2022-12-11 17:57] LABS: Alanine Aminotransferase 22 U/L (0-40); Albumin Level 4.3 g/dL (3.5-5.0); Alkaline Phosphatase 103 U/L (39-117); Anion Gap 17 (12-20); Aspartate Amino Transferase 16 U/L (5-37); Bilirubin Total 0.5 mg/dL (0.0-1.0); Blood Urea Nitrogen 14 mg/dL (9-16); Calcium 9.4 mg/dL (8.4-10.2); Carbon Dioxide 25 mmol/L (22-29); Chloride 103 mmol/L (96-108); Cholesterol 235 mg/dL; Estimated Glomerular Filt Rate > 60; Glucose Fasting 81 mg/dL (60-99); HDL Cholesterol 52 mg/dL; LDL Cholesterol Calculated 158 mg/dl; Sodium 141 mmol/L (135-145); Total Protein 7.2 g/dL (6.5-8.0); Triglycerides 125 mg/dL
== END 2022-12-11 15:50 | disposition home or self-care (01) ==
LOC: HO.LAB 15:49
PROVIDERS: PCP Physician Assistant; Visit Provider Physician Assistant
DX: I10 Essential (primary) hypertension (principal)
CPT/HCPCS: 36415; 80053; 80061; 82043; 84443; 85027

== ENCOUNTER → 2023-03-05 11:20 | Outpatient (BNVA) | payer OTHER, SELFPAY | PROVIDERS: PCP Physician Assistant; Visit Provider Nurse Practitioner Family | DX: G47.33 Obstructive sleep apnea (adult) (pediatric) (principal) | CPT/HCPCS: 99212 ==

== ENCOUNTER 2023-04-01 15:06 | Outpatient (AMB) | payer OTHER, SELFPAY ==
[2023-04-01 15:12] VITALS: BP 118/70; PULSE 75; O2SAT 98; BMI 47.3
--- NOTE | 2023-04-01 15:12 | MHC.OFFVIS ---
Intake Vital Signs 04/01/23 15:12 Height 5 ft 6 in Weight 293 lb BMI 47.3 BP 118/70 Blood Pressure Location Lt brachial Position Sitting Pulse 75 Pulse Source Pulse Oximeter Pulse Oximetry (%) 98 Oxygen Delivery Method Room Air Intake Visit Reasons: 1 year follow up Intake Note: 1 year follow up, pt states no complaints Accompanied by: Self / Same As Patient Allergies amlodipine Adverse Reaction (Verified 04/01/23 15:16) Chest Pain Medication List - Last Reconciled 04/01/23 by Curt Parry MD hydrochlorothiazide 25 mg PO DAILY lisinopril 40 mg PO DAILY metoprolol succinate ER 100 mg PO DAILY miscellaneous medical supply (Blood Pressure Cuff) As directed omeprazole 20 mg PO DAILY HPI HPI Comments History of Present Illness Details 28-year-old gentleman with hypertension and sleep apnea. He also had some symptomatic PVCs in the past. He was given script for flecainide to use as needed. He has not used it since last visit. Blood pressure control is good. He has been taking medications regularly. He has gained more weight. He has been trying to cut back on soda and make some dietary changes. I have advised him that it is important for him to take control of his weight at this stage because as time passes and if he gains more weight it may become quite difficult for him to lose it. 04/01/23: He is here for follow-up. He has been doing well and has no chest discomfort or shortness of breath. Blood pressure control is good. He has been compliant with CPAP. He has gained 9 lb since his last visit. 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 [facility] Surgical History History of hernia surgery No pertinent past surgical history [place] teeth removed Family History Father ADHD HTN (hypertension) CAD (coronary artery disease) Hyperlipidemia Insomnia Dysautonomia Colon cancer, Onset Age: 40 Mother Eczema Migraines Social History Housing: Apartment Alcohol intake: never Patient Tobacco Use Status: Never used Tobacco e-Cigarette/Vaping Use: Never Used service: No Current occupational status: employed Current occupation: [employer]_ [employer] Cognitive needs: No Hearing needs: No Vision needs: No Review of Systems Const Denies chills, Denies fatigue, Denies fever(s), Denies frequent falls, Denies weakness, Denies weight gain and Denies weight loss ENT Denies dizziness Card Denies chest pain, Denies leg edema, Denies lightheadedness, Denies palpitations, Denies dyspnea, Denies dyspnea on exertion, Denies orthopnea and Denies other (loss of consciousness) Resp Denies cough, Denies dyspnea and Denies dyspnea on exertion GI Denies hematochezia and Denies change in stool character Musc Denies abnormal gait, Denies muscle weakness, Denies numbness, Denies radiating pain into limb and Denies tingling Neuro Denies abnormal gait, Denies dizziness, Denies frequent falls, Denies numbness, Denies tingling and Denies weakness Endo Denies fatigue and Denies palpitations Physical Exam Vital Signs: Last Vital Signs Pulse 75 04/01/23 15:12 BP 118/70 04/01/23 15:12 Pulse Ox 98 04/01/23 15:12 Oxygen Delivery Method Room Air 04/01/23 15:12 BMI result Body Mass Index 47.3 GENERAL APPEARANCE: in no acute distress, well developed, well nourished. NECK/THYROID: no carotid bruit, no jugular venous distention. SKIN: no suspicious lesions, warm and dry. HEART: no murmurs, regular rate and rhythm, S1, S2 normal. LUNGS: clear to auscultation bilaterally. ABDOMEN: normal, bowel sounds present, soft, nontender, nondistended. EXTREMITIES: no clubbing, cyanosis, or edema. PERIPHERAL PULSES: equal. NEUROLOGIC: nonfocal, alert and oriented. Office Procedures EKG Details: Sinus rhythm 75 beats per minute, no axis, incomplete right bundle-branch block, QTC 439 milliseconds. [id number], Complete Assessment & Plan Assessment & Plan (1) HTN (hypertension): Code(s): I10 - Essential (primary) hypertension Qualifiers: Hypertension type: primary hypertension Qualified Code(s): I10 - Essential (primary) hypertension Plan Pleasant 28 year gentleman with hypertension and obstructive sleep apnea. He is currently on hydrochlorothiazide 25 mg daily, lisinopril 40 mg daily and, Toprol XL 100 mg. He is compliant with CPAP. His blood pressure control has been good. He should continue same medications for now. He has gained more weight since his last visit. We had a discussion about weight loss again. I have explained to him that most of his issues are stemming from the overweight. If he exercises regularly and loses some weight he may be able to get of couple of his medications as well as the CPAP eventually. He is saying he has been watching his diet and changing his diet. He will see us in 1 year. Thank you for allowing me to participate in the care of your patient. Please feel free to contact me if you have any questions. Coding Level of Care Code Est Pt Level 4 (23384) Diagnoses HTN (hypertension) I10 Hypertension type: primary hypertension CPT Codes EKG - CPT: 07695-[id number], Complete ([id number])
== END 2023-04-01 15:45 | disposition home or self-care (01) ==
PROVIDERS: Visit Provider Internal Medicine Cardiovascular Disease
DX: I10 Essential (primary) hypertension (principal)
CPT/HCPCS: 93010; 99214

== ENCOUNTER → 2023-04-01 15:06 | Outpatient (BNVA) | payer OTHER, SELFPAY | PROVIDERS: Visit Provider Internal Medicine Cardiovascular Disease | DX: I10 Essential (primary) hypertension (principal); G47.33 Obstructive sleep apnea (adult) (pediatric); Z99.89 Dependence on other enabling machines and devices | CPT/HCPCS: 93005; 99212 ==

== ENCOUNTER 2023-04-08 13:09 | Outpatient (AMB) | payer OTHER, SELFPAY ==
--- NOTE | 2023-04-08 14:21 | AM.OFFWIN_ITS ---
Intake Vital Signs 04/08/23 14:23 BP 110/70 Blood Pressure Location Rt brachial Position Sitting Pulse 71 Pulse Source Pulse Oximeter Pulse Oximetry (%) 98 Oxygen Delivery Method Room Air Intake Visit Reasons: Rt foot pain/ no recent accident [phone] Intake Note: Patient here for right foot pain, started saturday evening, pt states it is very painful when weight gets put on it. no known injuries Patient Tobacco Use Status: Never used Tobacco Allergies amlodipine Adverse Reaction (Verified 04/12/23 14:42) Chest Pain Medication List - Last Reconciled 04/12/23 by Garret Woods MD hydrochlorothiazide 25 mg PO DAILY lisinopril 40 mg PO DAILY metoprolol succinate ER 100 mg PO DAILY miscellaneous medical supply (Blood Pressure Cuff) As directed omeprazole 20 mg PO DAILY Do you need a note to return to daycare/school/sports/work: Yes HPI Rt foot pain/ no recent accident [phone] HPI Details 28-year-old male presents to the office for a sick visit. 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 He is on his feet all day. Patient is complaining of pain in the right foot and worsens on weight-bearing. Does not recall any specific fall or injury. [facility] Surgical History History of hernia surgery No pertinent past surgical history [place] teeth removed Family History Father ADHD HTN (hypertension) CAD (coronary artery disease) Hyperlipidemia Insomnia Dysautonomia Colon cancer, Onset Age: 40 Mother Eczema Migraines Social History Housing: Apartment Alcohol intake: never Patient Tobacco Use Status: Never used Tobacco e-Cigarette/Vaping Use: Never Used service: No Current occupational status: employed Current occupation: [employer] Cognitive needs: No Hearing needs: No Vision needs: No Physical Exam Vital Signs: Last Vital Signs Pulse 71 04/08/23 14:23 BP 110/70 04/08/23 14:23 Pulse Ox 98 04/08/23 14:23 Oxygen Delivery Method Room Air 04/08/23 14:23 Extrem Other: Right foot: Tenderness over the dorsum of the foot. No visible swelling or erythema. Assessment & Plan Assessment & Plan (1) Contusion of foot, right: Code(s): S90.31XA - Contusion of right foot, initial encounter Plan: Keep foot elevated. X-rays were personally reviewed by me. Anti-inflammatories called in. If symptoms not better to follow-up here. Orders: Orders XR foot RT min 3V 04/08/23 S90.31XA - Contusion of right foot, initial encounter Coding Level of Care Code Est Pt Level 4 (61395) Diagnoses Contusion of foot, right S90.31XA
[2023-04-08 14:23] VITALS: BP 110/70; PULSE 71; O2SAT 98
== END 2023-04-08 15:47 | disposition home or self-care (01) ==
PROVIDERS: PCP Physician Assistant; Visit Provider Internal Medicine
DX: S90.31XA Contusion of right foot, initial encounter (principal)
CPT/HCPCS: 99214

== ENCOUNTER 2023-04-08 14:58 | Outpatient (REF) | payer OTHER, SELFPAY ==
--- NOTE | ~2023-04-08 | XR_ITS ---
EXAMINATION: XR FOOT, RIGHT CLINICAL INFORMATION: Injury contusion COMPARISON: None available. TECHNIQUE: AP, lateral, and oblique views of the right foot. FINDINGS: The bones and soft tissues are normal. No fracture. Alignment is anatomic. Joint spaces are maintained. XR/XR foot RT min 3V IMPRESSION: No fracture or dislocation.
== END 2023-04-08 14:59 | disposition home or self-care (01) ==
LOC: HO.HMGCX 14:58
PROVIDERS: PCP Physician Assistant; Visit Provider Internal Medicine
DX: S90.31XA Contusion of right foot, initial encounter (principal)
CPT/HCPCS: 73630

== ENCOUNTER 2023-06-12 15:12 | Outpatient (AMB) | payer OTHER, SELFPAY ==
[2023-06-12 15:17] VITALS: BP 138/78; PULSE 67; RESP 16; O2SAT 98; BMI 46.2
--- NOTE | 2023-06-12 15:17 | A.OFFPC_ITS ---
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: No Allergies amlodipine Adverse Reaction (Verified 06/12/23 15:37) Chest Pain Medication List - Last Reconciled 06/12/23 by Timmy Espitia PA-C hydrochlorothiazide 25 mg PO DAILY lisinopril 40 mg PO DAILY metoprolol succinate ER 100 mg PO DAILY miscellaneous medical supply (Blood Pressure Cuff) As directed omeprazole 20 mg PO DAILY Tobacco use date assessed: 12/11/22 Dental Screening Dental Screen Date: 06/12/23 Did you have a dental visit in the last 12 months?: Yes Did you have a dental problem in the last 6 months where you did not have access to dental care?: No Was dental information given to patient?: Patient has dentist HPI f/u HTN HPI Details Doron is a 28 yo male here today for follow-up visit Patient has a past medical history significant for morbid obesity, HTN, JAKE with CPAP use, symptomatic PVCs who presents for follow up. .. ? Hypertension: blood pressure acceptable today in office acceptable, ? Denies any headaches, vision issues or chest discomforts. .. .? Symptomatic PVCs:? is followed by car diologist, continues on metoprolol under mg daily. Not had any heart palpitations since starting medication. .. Obesity: Patient does understand his BMI is well over 30, has noted some weight loss since last office visit. Reports his diet has not been good as it is very expensive to eat healthy he reports. .. ? Obstructive sleep apnea:? he is compliant with CPAP machine nightly.? He reports he gets good rest now.? Laboratory Tests 02/27/22 11:34 Creatinine 0.80 Cholesterol 209 LDL Cholesterol, C alc 139 Renin Activity 2.92 Aldosterone 4 PFSH Surgical History [place] teeth removed History of hernia surgery No pertinent past surgical history Family History Father ADHD HTN (hypertension) CAD (coronary artery disease) Hyperlipidemia Insomnia Dysautonomia Colon cancer, Onset Age: 40 Mother Eczema Migraines Social History Housing: Apartment Alcohol intake: never Patient Tobacco Use Status: Never used Tobacco e-Cigarette/Vaping Use: Never Used service: No Current occupational status: employed Current occupation: [employer]_ [place] Cognitive needs: No Hearing needs: No Vision needs: No Questionnaire Thrive Questionnaire Date Thrive assessed: 12/11/22 JAD-7 AMB Questionnaire JAD-7 Date JAD - 7 assessed: 12/11/22 Source: Developed by Drs. Johnathan Marte, Vannessa Segura, Lion Jacobs and colleagues, with an educational adriana from [employer]. Review of Systems Const Denies headache(s) Eyes Denies loss of vision ENT Denies vertigo, Denies dizziness, Denies headache(s) and Denies sore throat Card Denies chest pain, Denies leg edema and Denies lightheadedness Resp Denies cough, Denies hemoptysis and Denies wheezing GI Denies abdominal pain, Denies melena, Denies constipation, Denies diarrhea and Denies vomiting Denies dysuria, Denies urinary frequency and Denies urinary urgency Musc Denies arthralgias, Denies joint swelling, Denies numbness and Denies tingling Neuro Denies Abnormal speech present, Denies behavioral changes, Denies vertigo, Denies dizziness, Denies headache(s), Denies loss of vision, Denies memory loss, Denies numbness and Denies tingling Psych Denies anxiety, Denies behavioral changes, Denies depression, Denies memory loss and Denies panic attacks Cedric/Lymph Denies easy bleeding and Denies easy bruising Aller/Immun Denies wheezing Physical exam (Primary Care) Vital Signs: Last Vital Signs Pulse 67 06/12/23 15:17 Resp 16 06/12/23 15:17 BP 138/78 06/12/23 15:17 Pulse Ox 98 06/12/23 15:17 Oxygen Delivery Method Room Air 06/12/23 15:17 BMI result Body Mass Index 46.2 Tobacco/Smoking Status: Tobacco use Status Tobacco use date assessed 12/11/22 06/12/23 15:21 Patient Tobacco Use Status Never used Tobacco 06/12/23 15:21 e-Cigarette/Vaping Use Never Used 06/12/23 15:21 Thrive Assessment: Date of Thrive Assessment Date Thrive assessed 12/11/22 06/12/23 15:21 Const General: healthy appearing, no acute distress, alert and awake Nutritional Appearance: well nourished Orientation/consciousness: oriented to person, oriented to place and oriented to time HENMT Ears: TM's normal bilaterally General nose exam: Normal nasal mucous membranes and turbinates present Eyes Conjunctivae: conjunctivae normal Sclerae: sclerae normal Pupils: Equal, round and reactive pupils present Neck Neck: Yes no lymphadenopathy and Yes no JVD Thyroid: Thyroid normal Carotids: no bruits Resp Effort & Inspection: normal respiratory effort and not tachypneic Auscultation: no crackles, no rales, no rhonchi and no wheezes Cardio Rate: regular rate Rhythm: regular rhythm Heart sounds: no murmurs and normal S1 and S2 GI Palpation (GI): Soft to palpation, nontender, no hepatomegaly and no splenomegaly Auscultation: normal bowel sounds Skin General skin exam: no rashes or lesions noted and dry skin Neuro General: oriented to person, oriented to place and oriented to time Cranial nerves: Yes Equal, round and reactive pupils present Speech: No Abnormal speech present Gait exam (Neuro): Normal gait present Motor exam (neuro): no tremor noted Extrem Right upper extremity: full ROM Left upper extremity: full ROM Right lower extremity: full ROM; no edema Left lower extremity: full ROM; no edema Psych Mental Status: mental status grossly normal Speech and movement: Normal speech and movement present Affect: normal affect Attitude: cooperative Thought process: Normal thought process present Assessment and Plan Assessment & Plan (1) HTN (hypertension): Code(s): I10 - Essential (primary) hypertension Qualifiers: Hypertension type: primary hypertension Qualified Code(s): I10 - Essential (primary) hypertension Plan: Patient's blood pressure acceptable today in office, continue his current dose of antihypertensive medication with blood pressure be below 140/90 (2) Obese: Code(s): E66.9 - Obesity, unspecified Qualifiers: Body mass index: BMI 39.0-39.9 Obesity classification: adult class 2 (BMI 35 - 39.9) Obesity type: due to excess calories Serious obesity comorbidity presence: without serious comorbidity Qualified Code(s): E66.09 - Other obesity due to excess calories; Z68.39 - Body mass index [BMI] 39.0-39.9, adult Plan: Has lost weight since last office visit. Patient does understand his BMI is well over 30 will work on being more physically active and adapting to better eating habits to reduce his weight (3) JAKE (obstructive sleep apnea): Comment: SHST 10/2018 Results AHI 56/hr; O2 marlon 78% Code(s): G47.33 - Obstructive sleep apnea (adult) (pediatric) Plan: Patient continues to use CPAP on a nightly basis with good effect. (4) HLD (hyperlipidemia): Code(s): E78.5 - Hyperlipidemia, unspecified Qualifiers: Hyperlipidemia type: pure hypercholesterolemia Qualified Code(s): E78.00 - Pure hypercholesterolemia, unspecified Plan: Patient's most recent lipid panel showing borderline high total cholesterol. Has been working on lifestyle modifications lost a couple lb since last office visit. Goal total cholesterol to be below 200 LDL to be below 160 Orders: Orders Comprehensive [place]. Panel Fast 06/12/23 I10 - Essential (primary) hypertension Lipid Panel 06/12/23 E78.00 - Pure hypercholesterolemia, unspecified Complete Blood Count no Diff 06/12/23 I10 - Essential (primary) hypertension Coding Level of Care Code Est Pt Level 4 (64884) Diagnoses Primary hypertension I10 Hypertension type: primary hypertension Class 2 obesity due to excess calories without serious comorbidity with body mass index (BMI) of 39.0 to 39.9 in adult E66.09; Z68.39 Body mass index: BMI 39.0-39.9 Obesity classification: adult class 2 (BMI 35 - 39.9) Obesity type: due to excess calories Serious obesity comorbidity presence: without serious comorbidity JAKE (obstructive sleep apnea) G47.33 Pure hypercholesterolemia E78.00 Hyperlipidemia type: pure hypercholesterolemia
== END 2023-06-12 15:45 | disposition home or self-care (01) ==
PROVIDERS: Visit Provider Physician Assistant
DX: I10 Essential (primary) hypertension (principal); E66.09 Other obesity due to excess calories; Z68.39 Body mass index [BMI] 39.0-39.9, adult; G47.33 Obstructive sleep apnea (adult) (pediatric); E78.00 Pure hypercholesterolemia, unspecified
CPT/HCPCS: 99214

== ENCOUNTER 2023-12-16 11:16 | Outpatient (AMB) | payer OTHER, SELFPAY ==
--- NOTE | 2023-12-16 11:29 | MHC.PC.OV ---
Vital Signs 12/16/23 11:30 Height 5 ft 6 in Weight 298 lb BMI 48.1 BP 128/66 Blood Pressure Location Lt brachial Position Sitting Respiration 16 Pulse 90 Pulse Source Pulse Oximeter Pulse Oximetry (%) 97 Oxygen Delivery Method Room Air Intake Visit Reasons: PE Intake Note: Patient is here today for a physical. 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 Accompanied by: Self / Same As Patient Allergies amlodipine Adverse Reaction (Verified 12/16/23 11:36) Chest Pain Medication List - Last Reconciled 12/16/23 by Timmy Espitia PA-C hydrochlorothiazide 25 mg PO DAILY lisinopril 40 mg PO DAILY metoprolol succinate ER 100 mg PO DAILY miscellaneous medical supply (Blood Pressure Cuff) As directed omeprazole 20 mg PO DAILY Tobacco use date assessed: 12/16/23 Dental Screening Dental Screen Date: 12/16/23 Did you have a dental visit in the last 12 months?: Yes Did you have a dental problem in the last 6 months where you did not have access to dental care?: No Was dental information given to patient?: Patient has dentist HPI PE HPI Details Doron is a 28 yo male here today for routine annual physical Patient has a past medical history significant for morbid obesity, HTN, JAKE with CPAP use, symptomatic PVCs who presents for follow up. Concern--> He reports he has been going to [facility] to do counseling. There is some talk that he may have ADD disorder in his perhaps being set up with a psychiatrist for diagnosis. We did discuss possibly starting ADD medication (Strattera) to which he will consider and let us now. .. ? Hypertension: blood pressure acceptable today in office acceptable, ? Denies any headaches, vision issues or chest discomforts. .. .? Symptomatic PVCs:? 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 Not had any heart palpitations since starting medication. .. Obesity: Unfortunately gained some weight since last office visit. Patient does understand his BMI is well over 30, has noted some weight loss since last office visit. Reports his diet has not been good as it is very expensive to eat healthy he reports. .. ? Obstructive sleep apnea:? he is compliant with CPAP machine nightly.? He reports he gets good rest now.? Vaccine: UTD With Tdap and COVID. Did not get flu shot this flu season. [facility] Surgical History [place] teeth removed History of hernia surgery No pertinent past surgical history Family History Father ADHD HTN (hypertension) CAD (coronary artery disease) Hyperlipidemia Insomnia Dysautonomia Colon cancer, Onset Age: 40 Mother Eczema Migraines Social History (Updated 12/16/23 @ 11:39 by Timmy Espitia PA-C) Housing: Apartment Alcohol intake: current Alcohol intake frequency: holidays/special occasions only Patient Tobacco Use Status: Never used Tobacco e-Cigarette/Vaping Use: Never Used service: No Current occupational status: employed Current occupation: [employer] Cognitive needs: No Hearing needs: No Vision needs: No Questionnaire Thrive Questionnaire Date Thrive assessed: 12/16/23 I am a: Patient What is your living situation today?: I have a steady place to live Within the past 12 months, did the food you bought not last and you didn't have the money to get more?: Never true Within the past 12 months, did you worry whether your food would run out before you got money to buy more?: Never true Do you have trouble paying for medicines?: No Do you have trouble getting transportation to medical appointments?: No Do you have trouble paying your heating and electricity bill?: No Do you have trouble taking care of your child, family member or friend?: No Do you have trouble with day-to-day activities such as bathing, preparing meals, shopping, managing finances, etc.?: No Are you currently unemployed and looking for a job?: No Are you interested in more education?: No Please select the resources that you would like help with: None Currently or been in a relationship where the following occur: no concerns reported THRIVE Score: 0 AUDIT C Alcohol Use Questionnaire (AUDIT-C) 1. How often do you have a drink containing alcohol?: Monthly or less 2. How many drinks containing alcohol do you have on a typical day when you are drinking?: 1 or 2 3. How often do you have six or more drinks on one occasion?: Never Total Score: 1 JAD-7 AMB Questionnaire JAD-7 Date JAD - 7 assessed: 12/16/23 Feeling nervous, anxious, or on edge: 0 = Not at all Not being able to stop or control worryin = Not at all Worrying too much about different things: 0 = Not at all Trouble relaxin = Not at all Being so restless that it is hard to sit still: 0 = Not at all Becoming easily annoyed or irritable: 0 = Not at all Feeling afraid as if something awful might happen: 0 = Not at all Total JAD-7 score (0-4 normal; 5-9 mild; 10-14 moderate; 15-21 severe): 0 Source: Developed by Drs. Johnathan Marte, Vannessa Segura, Lion Jacobs and colleagues, with an educational adriana from [email or web address]. JAD-7 Assessment Billing JAD-7 Assessment Tool: JAD-7 Assessment 98127 Review of Systems Const Denies body aches, Denies chills, Denies excessive sweating, Denies fatigue, Denies fever(s) and Denies headache(s) Eyes Denies blurry vision ENT Denies dysphagia, Denies vertigo, Denies dizziness, Denies headache(s), Denies hearing loss and Denies tinnitus Card Denies chest pain, Denies chest pain with activity, Denies syncope, Denies irregular heart rhythm and Denies dyspnea Resp Denies chest congestion, Denies cough, Denies hemoptysis, Denies dyspnea and Denies wheezing GI Denies abdominal pain, Denies melena, Denies hematochezia, Denies coffee ground emesis, Denies dysphagia, Denies diarrhea, Denies nausea and Denies vomiting Denies difficulty urinating, Denies dysuria, Denies urinary frequency, Denies urinary hesitancy and Denies urinary urgency Musc Denies arthralgias, Denies limited range of motion, Denies muscle cramps and Denies muscle weakness Skin/Breast Denies rash and Denies skin ulcer Neuro Denies Abnormal speech present, Denies confusion, Denies vertigo, Denies dizziness, Denies syncope, Denies headache(s), Denies memory loss and Denies seizure-like activity Psych Denies anxiety, Denies confusion, Denies depression, Denies memory loss, Denies panic attacks and Denies paranoia Endo Denies excessive sweating, Denies fatigue, Denies flushing, Denies polydipsia and Denies polyuria Aller/Immun Denies wheezing Physical exam (Primary Care) Vital Signs: Last Vital Signs Pulse 90 12/16/23 11:30 Resp 16 12/16/23 11:30 BP 128/66 12/16/23 11:30 Pulse Ox 97 12/16/23 11:30 Oxygen Delivery Method Room Air 12/16/23 11:30 BMI result Body Mass Index 48.1 BMI Assessment/Plan discussion: High Tobacco/Smoking Status: Tobacco use Status Tobacco use date assessed 12/16/23 12/16/23 11:33 Patient Tobacco Use Status Never used Tobacco 12/16/23 11:39 e-Cigarette/Vaping Use Never Used 12/16/23 11:39 Thrive Assessment: Date of Thrive Assessment Date Thrive assessed 12/16/23 12/16/23 11:33 Currently or been in a relationship where the following occur: no concerns reported Const Other: Obese General: cooperative, comfortable, no acute distress, alert and awake; No confusion Orientation/consciousness: oriented to person, oriented to place, patient oriented x3 and No confusion HENMT Head: Yes normocephalic Ears: external ears normal and TM's normal bilaterally Face and sinus: No sinus tenderness Mouth: Normal oral and palatal mucosa present and tongue normal Teeth and gingiva: dentition normal and gingiva normal Throat: Yes posterior oropharynx normal, Yes tonsils normal and Yes uvula midline Eyes Conjunctivae: conjunctivae normal Sclerae: sclerae normal Pupils: Equal, round and reactive pupils present EOM: EOMs intact bilaterally Direct Ophthalmoscopy: No no photophobia Neck Neck: Yes no lymphadenopathy, No tender and Yes no JVD Thyroid: Thyroid normal Carotids: no bruits Chest Chest palpation & inspection: no tenderness Resp Effort & Inspection: normal respiratory effort, no audible wheezes, not labored and no stridor Auscultation: no crackles, no rales, no rhonchi and no wheezes Cardio Jugular venous distension: no JVD Rate: regular rate, not bradycardic and not tachycardic Rhythm: regular rhythm Bruits: no carotid bruits Peripheral pulses: Peripheral pulses 2+ throughout GI Inspection: Yes normal to inspection, No abdominal wall ecchymosis and No visible herniation Palpation (GI): Soft to palpation, nontender, no guarding, not rigid and No hepatosplenomegaly present Auscultation: normoactive bowel sounds General: Yes no CVA tenderness Back/Spine/Pelvis Back: no CVA tenderness and No back tenderness Cervical Spine: cervical ROM normal Thoracic/Lumbar Spine: thoracic and lumbar spine normal to inspection, straight leg raise negative bilaterally, No thoraco-lumbar ROM limited and No lumbar spinal tenderness Skin Lesions: no lesions Rashes: no rashes Wounds: no wounds Neuro General: oriented to person, oriented to place, patient oriented x3, CN's II-XI intact bilaterally and No confusion Cranial nerves: Yes Equal, round and reactive pupils present and Yes Normal accommodation reflex present Cognition (Neuro): normal cognition Speech: No Abnormal speech present Gait exam (Neuro): Normal gait present Motor exam (neuro): 5/5 motor strength present throughout Extrem Right upper extremity: full ROM; no cyanosis Left upper extremity: full ROM; no cyanosis Right lower extremity: no edema Left lower extremity: no edema Psych Appearance: grossly normal Mental Status: mental status grossly normal Affect: normal affect Attitude: cooperative Thought process: Normal thought process present Assessment and Plan Assessment & Plan (1) Annual physical exam: Code(s): Z00.00 - Encounter for general adult medical examination without abnormal findings (2) HTN (hypertension): Code(s): I10 - Essential (primary) hypertension Qualifiers: Hypertension type: primary hypertension Qualified Code(s): I10 - Essential (primary) hypertension Plan: Patient's blood pressure acceptable today in office, continue his current dose of antihypertensive medication with blood pressure be below 140/90 (3) Obese: Code(s): E66.9 - Obesity, unspecified Qualifiers: Body mass index: BMI 39.0-39.9 Obesity classification: adult class 2 (BMI 35 - 39.9) Obesity type: due to excess calories Serious obesity comorbidity presence: without serious comorbidity Qualified Code(s): E66.09 - Other obesity due to excess calories; Z68.39 - Body mass index [BMI] 39.0-39.9, adult Plan: Has unfortunately gained some weight since last office visit. Patient does understand his BMI is well over 30 will work on being more physically active and adapting to better eating habits to reduce his weight (4) JAKE (obstructive sleep apnea): Comment: SHST 10/2018 Results AHI 56/hr; O2 marlon 78% Code(s): G47.33 - Obstructive sleep apnea (adult) (pediatric) Plan: Patient continues to use CPAP on a nightly basis with good effect. (5) HLD (hyperlipidemia): Code(s): E78.5 - Hyperlipidemia, unspecified Qualifiers: Hyperlipidemia type: pure hypercholesterolemia Qualified Code(s): E78.00 - Pure hypercholesterolemia, unspecified Plan: Patient's most recent lipid panel showing borderline high total cholesterol. Has been working on lifestyle modifications lost a couple lb since last office visit. Goal total cholesterol to be below 200 LDL to be below 160 Medications: Refilled omeprazole 20 mg PO DAILY 90 caps 2RF K21.9 - Gastro-esophageal reflux disease without esophagitis hydrochlorothiazide 25 mg PO DAILY 90 tabs 2RF metoprolol succinate ER 100 mg PO DAILY 90 tabs 2RF Coding Level of Care Code Est Pt Prev Care 18-39y(04455) Diagnoses Annual physical exam Z00.00 Primary hypertension I10 Hypertension type: primary hypertension Class 2 obesity due to excess calories without serious comorbidity with body mass index (BMI) of 39.0 to 39.9 in adult E66.09; Z68.39 Body mass index: BMI 39.0-39.9 Obesity classification: adult class 2 (BMI 35 - 39.9) Obesity type: due to excess calories Serious obesity comorbidity presence: without serious comorbidity JAKE (obstructive sleep apnea) G47.33 Pure hypercholesterolemia E78.00 Hyperlipidemia type: pure hypercholesterolemia Additional Codes JAD-7 Assessment Billing - JAD-7 Assessment Tool: JAD-7 Assessment 94490 ([id number])
[2023-12-16 11:30] VITALS: BP 128/66; PULSE 90; RESP 16; O2SAT 97; BMI 48.1
== END 2023-12-16 11:50 | disposition home or self-care (01) ==
PROVIDERS: PCP Physician Assistant; Visit Provider Physician Assistant
DX: Z00.00 Encounter for general adult medical examination without abnormal findings (principal); I10 Essential (primary) hypertension; E66.09 Other obesity due to excess calories; Z68.39 Body mass index [BMI] 39.0-39.9, adult; G47.33 Obstructive sleep apnea (adult) (pediatric); E78.00 Pure hypercholesterolemia, unspecified
CPT/HCPCS: 99395

== ENCOUNTER 2023-12-16 11:56 | Outpatient (REF) | payer OTHER, SELFPAY ==
[2023-12-16 12:26] LABS: Hematocrit 41.5 % (42.0-52.0); Hemoglobin 13.6 g/dl (14.0-18.0); Mean Corpuscular HGB Conc 32.8 g/dl (31.0-36.0); Mean Corpuscular Hemoglobin 27.7 pg (27.0-33.0); Mean Corpuscular Volume 84.5 fL (80.0-98.0); Mean Platelet Volume 10.1 fL (9.4-12.4); Platelet Count 257 X10*3/uL (160-400); Red Blood Count 4.91 X10*6/uL (4.60-5.80); Red Cell Distribution Width 13.2 % (11.0-16.0); White Blood Count 10.7 X10*3/uL (4.8-10.8)
[2023-12-16 15:26] LABS: Alanine Aminotransferase 22 U/L (0-40); Albumin Level 4.2 g/dL (3.5-5.0); Alkaline Phosphatase 107 U/L (39-117); Anion Gap 13 (12-20); Aspartate Amino Transferase 13 U/L (5-37); Bilirubin Total 0.2 mg/dL (0.0-1.0); Blood Urea Nitrogen 15 mg/dL (9-16); Calcium 9.2 mg/dL (8.4-10.2); Carbon Dioxide 28 mmol/L (22-29); Chloride 103 mmol/L (96-108); Cholesterol 203 mg/dL (<200); Estimated Glomerular Filt Rate > 60; Glucose Fasting 100 mg/dL (60-99); HDL Cholesterol 51 mg/dL (>40); LDL Cholesterol Calculated 137 mg/dL (<100); Potassium 3.4 mmol/L (3.3-5.1); Sodium 141 mmol/L (135-145); Total Protein 7.3 g/dL (6.5-8.0); Triglycerides 78 mg/dL (<150)
== END 2023-12-16 11:57 | disposition home or self-care (01) ==
LOC: HO.LAB 11:56
PROVIDERS: PCP Physician Assistant; Visit Provider Physician Assistant
DX: I10 Essential (primary) hypertension (principal); E78.00 Pure hypercholesterolemia, unspecified
CPT/HCPCS: 36415; 80053; 80061; 85027

== ENCOUNTER 2024-05-18 13:36 | Outpatient (AMB) | payer OTHER, SELFPAY ==
[2024-05-18 13:39] VITALS: BP 128/72; PULSE 75; BMI 49.4
--- NOTE | 2024-05-18 13:39 | MHC.OFFVIS ---
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 His last prior visit to our office was 04/01/2023. Today he reports has been doing well over the last year with no concerning symptoms. He denies chest discomfort, shortness of breath, PND, orthopnea or edema. No lightheadedness, presyncope, syncope. Does not check his blood pressure at home. He reports compliance with his CPAP mask and his medications. Continues to work at an [employer] room. His weight is up 13 lb in the last year. [facility] Surgical History [place] teeth removed History of hernia surgery No pertinent past surgical history Family History Father ADHD HTN (hypertension) CAD (coronary artery disease) Hyperlipidemia Insomnia Dysautonomia Colon cancer, Onset Age: 40 Mother Eczema Migraines Social History Housing: Apartment Alcohol intake: current Alcohol intake frequency: holidays/special occasions only Patient Tobacco Use Status: Never used Tobacco e-Cigarette/Vaping Use: Never Used service: No Current occupational status: employed Current occupation: [email or web address] Cognitive needs: No Hearing needs: No Vision needs: No Review of Systems Const All systems reviewed & are unremarkable except as noted in HPI and below ENT Denies dizziness Card Denies chest pain, Denies chest pain at rest, Denies chest pain with activity, Denies rapid heart rate, Denies pedal edema, Denies edema, Denies leg edema, Denies lightheadedness, Denies palpitations, Denies dyspnea, Denies dyspnea on exertion and Denies orthopnea Resp Denies cough, Denies dyspnea and Denies dyspnea on exertion GI Denies hematochezia and Denies change in stool character Musc Denies abnormal gait, Denies limited range of motion, Denies muscle cramps, Denies muscle weakness, Denies numbness, Denies radiating pain into limb, Denies stiffness and Denies tingling Neuro Denies abnormal gait, Denies dizziness, Denies numbness and Denies tingling Endo Denies palpitations Physical Exam Vital Signs: Last Vital Signs Pulse 75 05/18/24 13:39 BP 128/72 05/18/24 13:39 BMI result Body Mass Index 49.4 Const Other: morbidly obse General: cooperative, healthy appearing, comfortable and no acute distress Orientation/consciousness: patient oriented x3 Neck Neck: Yes normal visual inspection and Yes no JVD Resp Effort & Inspection: normal respiratory effort Auscultation: clear to auscultation bilaterally, no crackles, no rales, no rhonchi and no wheezes Cardio Jugular venous distension: no JVD Rate: regular rate Rhythm: regular rhythm Heart sounds: S1 normal heart sound present, S2 normal heart sound present, no murmurs and no rubs Neuro General: patient oriented x3 Extrem General: Yes normal to inspection and No no pedal edema Psych Appearance: grossly normal Mental Status: mental status grossly normal Speech and movement: Normal speech and movement present Office Procedures EKG Details: Today, read by me, normal sinus rhythm with sinus arrhythmia, nonspecific intraventricular conduction delay, rate 75, QTC 435 millisecond [id number], Complete Assessment & Plan Assessment & Plan (1) HTN (hypertension): Code(s): I10 - Essential (primary) hypertension Category: Medical Qualifiers: Hypertension type: primary hypertension Qualified Code(s): I10 - Essential (primary) hypertension Plan: History of hypertension. Currently well controlled with use of hydrochlorothiazide, lisinopril and metoprolol. Echocardiogram done 10/05/2020 shows EF 60-65%, no regional wall motion abnormalities and normal diastolic function. Labs done 12/16/2023 show creatinine 0.78, potassium 3.4. Blood pressure today normal range. Low-salt diet reviewed. Benefits of weight loss and increasing his physical activity discussed. Cardiology follow-up in 1 year, sooner if needed. (2) PVC (premature ventricular contraction): Code(s): I49.3 - Ventricular premature depolarization Category: Medical Plan: History of PVCs, symptomatic. He does have p.r.n. flecainide that he can use if he has symptoms. He tells me he has not used any since his last visit a year ago. He denies any concerning heart palpitations. Echo shows normal EF. Pulse is very regular on examination today. (3) Obese: Code(s): E66.9 - Obesity, unspecified Category: Medical Qualifiers: Body mass index: BMI 39.0-39.9 Obesity classification: adult class 2 (BMI 35 - 39.9) Obesity type: due to excess calories Serious obesity comorbidity presence: without serious comorbidity Qualified Code(s): E66.09 - Other obesity due to excess calories; Z68.39 - Body mass index [BMI] 39.0-39.9, adult Plan: Morbid obesity with BMI 45.2. His weight is up 13 lb since his last visit. He tells me he has been trying to walk more. Discussed the benefits of weight loss including improved blood pressure, cholesterol and possible improvement in sleep apnea. He states understanding. Discussed referral to bariatric program and he is not interested. (4) JAKE (obstructive sleep apnea): Comment: SHST 10/2018 Results AHI 56/hr; O2 marlon 78% Code(s): G47.33 - Obstructive sleep apnea (adult) (pediatric) Category: Medical Plan: Compliant with his CPAP mask. Follows with Sleep Medicine Plan Time spent on chart review, documentation, interview and assessment Coding Level of Care Code Est Pt Level 3 (39580) Diagnoses Primary hypertension I10 Hypertension type: primary hypertension PVC (premature ventricular contraction) I49.3 Class 2 obesity due to excess calories without serious comorbidity with body mass index (BMI) of 39.0 to 39.9 in adult E66.09; Z68.39 Body mass index: BMI 39.0-39.9 Obesity classification: adult class 2 (BMI 35 - 39.9) Obesity type: due to excess calories Serious obesity comorbidity presence: without serious comorbidity JAKE (obstructive sleep apnea) G47.33 CPT Codes EKG - CPT: 36134-[id number], Complete ([id number]) Time Spent (min) 24
== END 2024-05-18 14:05 | disposition home or self-care (01) ==
PROVIDERS: PCP Physician Assistant; Visit Provider Nurse Practitioner Family
DX: I10 Essential (primary) hypertension (principal); I49.3 Ventricular premature depolarization; E66.09 Other obesity due to excess calories; Z68.39 Body mass index [BMI] 39.0-39.9, adult; G47.33 Obstructive sleep apnea (adult) (pediatric)
CPT/HCPCS: 93010; 99213

== ENCOUNTER → 2024-05-18 13:36 | Outpatient (BNVA) | payer OTHER, SELFPAY | PROVIDERS: PCP Physician Assistant; Visit Provider Nurse Practitioner Family | DX: I49.3 Ventricular premature depolarization (principal); I49.8 Other specified cardiac arrhythmias; I10 Essential (primary) hypertension; G47.33 Obstructive sleep apnea (adult) (pediatric); E66.09 Other obesity due to excess calories; Z68.42 Body mass index [BMI] 45.0-49.9, adult | CPT/HCPCS: 93005; 99212 ==

== ENCOUNTER 2024-06-11 12:30 | Outpatient (AMB) | payer OTHER, SELFPAY ==
--- NOTE | 2024-06-11 12:35 | MHC.OFFVIS ---
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 Pt denies any significant interval medical history changes. Pt reports he is sleeping well with APAP. Has good daytime energy. 90 day ( 03/05/24-06/02/24)APAP compliance report reveals APAP 5-20 cmH2O with max pressure of 12.9cmH2O; 7 hrs 41 min usage on days used; overall usage of 100% with usage > 4 hours of 100%; and residual AHI of 01.2/hr. ? PFSH Surgical History [place] teeth removed History of hernia surgery No pertinent past surgical history Family History Father ADHD HTN (hypertension) CAD (coronary artery disease) Hyperlipidemia Insomnia Dysautonomia Colon cancer, Onset Age: 40 Mother Eczema Migraines Social History Housing: Apartment Alcohol intake: current Alcohol intake frequency: holidays/special occasions only Patient Tobacco Use Status: Never used Tobacco e-Cigarette/Vaping Use: Never Used service: No Current occupational status: employed Current occupation: [employer] ROOM_ [employer] Cognitive needs: No Hearing needs: No Vision needs: No Physical Exam Vital Signs: Last Vital Signs Pulse 86 06/11/24 12:36 BP 130/76 06/11/24 12:36 Pulse Ox 97 06/11/24 12:36 Oxygen Delivery Method Room Air 06/11/24 12:36 BMI result Body Mass Index 50.7 Const General: no acute distress Orientation/consciousness: patient oriented x3 HEENT Head: Yes normocephalic Resp Effort & Inspection: normal respiratory effort and able to speak in complete sentences Neuro General: patient oriented x3 Psych Mental Status: mental status grossly normal Speech and movement: Clear speech present Attitude: cooperative Assessment & Plan Assessment & Plan (1) JAKE (obstructive sleep apnea): Comment: SHST 10/2018 Results AHI 56/hr; O2 marlon 78% Code(s): G47.33 - Obstructive sleep apnea (adult) (pediatric) Category: Medical Plan Continue APAP - cmH2O nightly > 4 hours, as pt continues to have good clinical effect from use. Clean CPAP machine and supplies routinely. Change CPAP supplies routinely. Pt to contact us or respiratory company with any questions or concerns. f/u in 1 yr w/ CPAP clinic or sooner prn. Coding Level of Care Code Est Pt Level 3 (31338) Diagnoses JAKE (obstructive sleep apnea) G47.33
[2024-06-11 12:36] VITALS: BP 130/76; PULSE 86; O2SAT 97; BMI 50.7
== END 2024-06-11 12:55 | disposition home or self-care (01) ==
PROVIDERS: Absent Provider Psychiatry & Neurology Neurology; PCP Physician Assistant; Visit Provider Psychiatry & Neurology Neurology
DX: G47.33 Obstructive sleep apnea (adult) (pediatric) (principal)
CPT/HCPCS: 99213

== ENCOUNTER → 2024-06-11 12:30 | Outpatient (BNVA) | payer OTHER, SELFPAY | PROVIDERS: Absent Provider Psychiatry & Neurology Neurology; PCP Physician Assistant; Visit Provider Psychiatry & Neurology Neurology | DX: G47.33 Obstructive sleep apnea (adult) (pediatric) (principal) | CPT/HCPCS: 99212 ==

== ENCOUNTER 2024-06-15 14:04 | Outpatient (AMB) | payer OTHER, SELFPAY ==
--- NOTE | 2024-06-15 14:09 | MHC.PC.OV ---
Vital Signs 06/15/24 14:18 Height 5 ft 6 in Weight 309 lb BMI 49.9 BP 136/68 Blood Pressure Location Lt brachial Position Sitting Pulse 95 Pulse Source Pulse Oximeter Pulse Oximetry (%) 97 Intake Visit Reasons: 6 Month F/U+ NEEDS PHQ-9 Allergies amlodipine Adverse Reaction (Verified 06/15/24 14:28) Chest Pain Medication List - Last Reconciled 06/15/24 by Timmy Espitia PA-C hydrochlorothiazide 25 mg PO DAILY lisinopril 40 mg PO DAILY metoprolol succinate ER 100 mg PO DAILY miscellaneous medical supply (Blood Pressure Cuff) As directed omeprazole 20 mg PO DAILY Tobacco use date assessed: 12/16/23 Dental Screening Dental Screen Date: 12/16/23 HPI 6 Month F/U+ NEEDS PHQ-9 HPI Details Doron is a 29 yo male here today for for follow-up visit Patient has a past medical history significant for morbid obesity, HTN, JAKE with CPAP use, symptomatic PVCs who presents for follow up. Concern--> continues to be told he is issues with his attention and focus. He continues to work a full-time job at an [employer] room. He would like evaluation by Psychiatry about ADD disorder. We did discuss non stimulant medication for ADD though he will like to hold off on this for now. .. ? Hypertension: blood pressure acceptable today in office acceptable, ? Denies any headaches, vision issues or chest discomforts. .. .? Symptomatic PVCs:? He is followed by [facility], continues on metoprolol under mg daily. Not had any heart palpitations since starting medication. .. Obesity: Unfortunately gained some weight since last office visit. Patient does understand his BMI is well over 30, has noted some weight loss since last office visit. Reports his diet has not been good as it is very expensive to eat healthy he reports. .. ? Obstructive sleep apnea:? Followed by sleep specialty. he is compliant with CPAP machine nightly.? He reports he gets good rest now.? PFSH Surgical History [place] teeth removed History of hernia surgery No pertinent past surgical history Family History Father ADHD HTN (hypertension) CAD (coronary artery disease) Hyperlipidemia Insomnia Dysautonomia Colon cancer, Onset Age: 40 Mother Eczema Migraines Social History Housing: Apartment Alcohol intake: current Alcohol intake frequency: holidays/special occasions only Patient Tobacco Use Status: Never used Tobacco e-Cigarette/Vaping Use: Never Used service: No Current occupational status: employed Current occupation: [employer]_ [employer] Cognitive needs: No Hearing needs: No Vision needs: No Questionnaire PHQ-9 Over the last 2 weeks, how often have you been bothered by any of the following problems? 1. Little interest or pleasure in doing things: not at all 2. Feeling down, depressed, or hopeless: not at all 3. Trouble falling or staying asleep, or sleeping too much: not at all 4. Feeling tired or having little energy: not at all 5. Poor appetite or overeating: not at all 6. Feeling bad about yourself - or that you are a failure or have let yourself or your family down: not at all 7. Trouble concentrating on things, such as reading the newspaper or watching television: not at all 8. Moving or speaking so slowly that other people could have noticed. Or the opposite - being so fidgety or restless that you have been moving around a lot more than usual: not at all 9. Thoughts that you would be better off or of hurting yourself in some way: not at all Total score: 0 Depression Screening Interpretation: Negative Depression Screening Done: Yes 42940 - PHQ-9 Billing: Yes Source: Developed by Drs. Johnathan Marte, Vannessa Segura, Lion Jacobs and colleagues, with an educational adriana from [employer]. Thrive Questionnaire Date Thrive assessed: 06/15/24 I am a: Patient What is your living situation today?: I have a steady place to live Within the past 12 months, did the food you bought not last and you didn't have the money to get more?: Never true Within the past 12 months, did you worry whether your food would run out before you got money to buy more?: Never true Do you have trouble paying for medicines?: No Do you have trouble getting transportation to medical appointments?: No Do you have trouble paying your heating and electricity bill?: No Do you have trouble taking care of your child, family member or friend?: No Do you have trouble with day-to-day activities such as bathing, preparing meals, shopping, managing finances, etc.?: No Are you currently unemployed and looking for a job?: No Are you interested in more education?: No Please select the resources that you would like help with: None Currently or been in a relationship where the following occur: No concerns reported THRIVE Score: 0 AUDIT C Alcohol Use Questionnaire (AUDIT-C) 1. How often do you have a drink containing alcohol?: Monthly or less 2. How many drinks containing alcohol do you have on a typical day when you are drinking?: 1 or 2 3. How often do you have six or more drinks on one occasion?: Never Total Score: 1 JAD-7 AMB Questionnaire JAD-7 Date JAD - 7 assessed: 06/15/24 Feeling nervous, anxious, or on edge: 0 = Not at all Not being able to stop or control worryin = Not at all Worrying too much about different things: 0 = Not at all Trouble relaxin = Not at all Being so restless that it is hard to sit still: 0 = Not at all Becoming easily annoyed or irritable: 0 = Not at all Feeling afraid as if something awful might happen: 0 = Not at all Total JAD-7 score (0-4 normal; 5-9 mild; 10-14 moderate; 15-21 severe): 0 Source: Developed by Drs. Johnathan Marte, Vannessa Segura, Lion Jacobs and colleagues, with an educational adriana from [employer]. JAD-7 Assessment Billing JAD-7 Assessment Tool: JAD-7 Assessment 03081 Review of Systems Const Denies headache(s) Eyes Denies loss of vision ENT Denies vertigo, Denies dizziness, Denies headache(s) and Denies sore throat Card Denies chest pain, Denies leg edema and Denies lightheadedness Resp Denies cough, Denies hemoptysis and Denies wheezing GI Denies abdominal pain, Denies melena, Denies constipation, Denies diarrhea and Denies vomiting Denies dysuria, Denies urinary frequency and Denies urinary urgency Musc Denies arthralgias, Denies joint swelling, Denies numbness and Denies tingling Neuro Denies Abnormal speech present, Denies behavioral changes, Denies vertigo, Denies dizziness, Denies headache(s), Denies loss of vision, Denies memory loss, Denies numbness and Denies tingling Psych Denies anxiety, Denies behavioral changes, Denies depression, Denies memory loss and Denies panic attacks Cedric/Lymph Denies easy bleeding and Denies easy bruising Aller/Immun Denies wheezing Physical exam (Primary Care) Vital Signs: Last Vital Signs Pulse 95 06/15/24 14:18 BP 136/68 06/15/24 14:18 Pulse Ox 97 06/15/24 14:18 BMI result Body Mass Index 49.9 Tobacco/Smoking Status: Tobacco use Status Tobacco use date assessed 12/16/23 06/15/24 14:10 Patient Tobacco Use Status Never used Tobacco 06/15/24 14:10 e-Cigarette/Vaping Use Never Used 06/15/24 14:10 PHQ-9: PHQ-9 Score PHQ-9: Total score 0 06/15/24 14:23 Depression Screening Interpretation: Negative Thrive Assessment: Date of Thrive Assessment Date Thrive assessed 06/15/24 06/15/24 14:23 Currently or been in a relationship where the following occur: No concerns reported Const General: healthy appearing, no acute distress, alert and awake Nutritional Appearance: well nourished Orientation/consciousness: oriented to person, oriented to place and oriented to time HENMT Ears: TM's normal bilaterally General nose exam: Normal nasal mucous membranes and turbinates present Eyes Conjunctivae: conjunctivae normal Sclerae: sclerae normal Pupils: Equal, round and reactive pupils present Neck Neck: Yes no lymphadenopathy and Yes no JVD Thyroid: Thyroid normal Carotids: no bruits Resp Effort & Inspection: normal respiratory effort and not tachypneic Auscultation: no crackles, no rales, no rhonchi and no wheezes Cardio Rate: regular rate Rhythm: regular rhythm Heart sounds: no murmurs and normal S1 and S2 GI Palpation (GI): Soft to palpation, nontender, no hepatomegaly and no splenomegaly Auscultation: normal bowel sounds Skin General skin exam: no rashes or lesions noted and dry skin Neuro General: oriented to person, oriented to place and oriented to time Cranial nerves: Yes Equal, round and reactive pupils present Speech: No Abnormal speech present Gait exam (Neuro): Normal gait present Motor exam (neuro): no tremor noted Extrem Right upper extremity: full ROM Left upper extremity: full ROM Right lower extremity: full ROM; no edema Left lower extremity: full ROM; no edema Psych Mental Status: mental status grossly normal Speech and movement: Normal speech and movement present Affect: normal affect Attitude: cooperative Thought process: Normal thought process present Assessment and Plan Assessment & Plan (1) HTN (hypertension): Code(s): I10 - Essential (primary) hypertension Qualifiers: Hypertension type: primary hypertension Qualified Code(s): I10 - Essential (primary) hypertension Plan: Patient's blood pressure acceptable today in office, continue his current dose of antihypertensive medication with blood pressure be below 140/90 (2) Obese: Code(s): E66.9 - Obesity, unspecified Qualifiers: Obesity type: due to excess calories Obesity classification: adult class 2 (BMI 35 - 39.9) Serious obesity comorbidity presence: without serious comorbidity Body mass index: BMI 39.0-39.9 Qualified Code(s): E66.09 - Other obesity due to excess calories; Z68.39 - Body mass index [BMI] 39.0-39.9, adult Plan: Unfortunately has gained weight since last office visit, he does have difficulty eating well. Lives at home with his parents and reports it is very expensive to eat healthy. (3) JAKE (obstructive sleep apnea): Comment: [facility] 10/2018 Results AHI 56/hr; O2 marlon 78% Code(s): G47.33 - Obstructive sleep apnea (adult) (pediatric) Plan: Patient continues to use CPAP on a nightly basis with good effect. (4) HLD (hyperlipidemia): Code(s): E78.5 - Hyperlipidemia, unspecified Qualifiers: Hyperlipidemia type: pure hypercholesterolemia Qualified Code(s): E78.00 - Pure hypercholesterolemia, unspecified Plan: Patient's most recent lipid panel showing borderline high total cholesterol. Has been working on lifestyle modifications lost a couple lb since last office visit. Goal total cholesterol to be below 200 LDL to be below 160 (5) ADD (attention deficit disorder): Code(s): F98.8 - Other specified behavioral and emotional disorders with onset usually occurring in childhood and adolescence Qualifiers: Attention deficit type: attention or concentration deficit Qualified Code(s): R41.840 - Attention and concentration deficit Plan: Patient believes he has an attention deficit disorder though has not had any evaluation for this. We did discuss trying non stimulant ADD medication though he is concerned about starting new medication. He would like to see a psychiatrist at some point for evaluation. Orders: Orders Lipid Panel Today E78.00 - Pure hypercholesterolemia, unspecified Complete Blood Count no Diff Today I10 - Essential (primary) hypertension Microalbumin, Random (w Creat) Today I10 - Essential (primary) hypertension Comprehensive Melvin. Panel Fast Today I10 - Essential (primary) hypertension Referrals Counseling Referral R41.840 - Attention and concentration deficit Patient Instructions: Goal: Blood pressure to remain below 140/90 Barriers: Adherence to physical activity and healthy eating habits Coding Level of Care Code Est Pt Level 4 (97367) Diagnoses Primary hypertension I10 Hypertension type: primary hypertension Class 2 obesity due to excess calories without serious comorbidity with body mass index (BMI) of 39.0 to 39.9 in adult E66.09; Z68.39 Obesity type: due to excess calories Obesity classification: adult class 2 (BMI 35 - 39.9) Serious obesity comorbidity presence: without serious comorbidity Body mass index: BMI 39.0-39.9 JAKE (obstructive sleep apnea) G47.33 Pure hypercholesterolemia E78.00 Hyperlipidemia type: pure hypercholesterolemia Attention or concentration deficit R41.840 Attention deficit type: attention or concentration deficit Additional Codes JAD-7 Assessment Billing - JAD-7 Assessment Tool: JAD-7 Assessment 59532 ([id number])
[2024-06-15 14:18] VITALS: BP 136/68; PULSE 95; O2SAT 97; BMI 49.9
== END 2024-06-15 14:43 | disposition home or self-care (01) ==
PROVIDERS: PCP Physician Assistant; Visit Provider Physician Assistant
DX: I10 Essential (primary) hypertension (principal); E66.09 Other obesity due to excess calories; Z68.39 Body mass index [BMI] 39.0-39.9, adult; G47.33 Obstructive sleep apnea (adult) (pediatric); E78.00 Pure hypercholesterolemia, unspecified; R41.840 Attention and concentration deficit

== ENCOUNTER → 2024-06-15 14:04 | Outpatient (BNVA) | payer OTHER, SELFPAY | PROVIDERS: PCP Physician Assistant; Visit Provider Physician Assistant | DX: I10 Essential (primary) hypertension (principal); E66.09 Other obesity due to excess calories; Z68.39 Body mass index [BMI] 39.0-39.9, adult; G47.33 Obstructive sleep apnea (adult) (pediatric); E78.00 Pure hypercholesterolemia, unspecified; R41.840 Attention and concentration deficit | CPT/HCPCS: 96127; 99212 ==

== ENCOUNTER 2024-07-31 12:29 | Outpatient (REF) | payer OTHER, SELFPAY ==
--- NOTE | ~2024-07-31 | XR_ITS ---
EXAMINATION: XR SHOULDER, LEFT CLINICAL INFORMATION: Pain COMPARISON: None available. TECHNIQUE: AP external rotation, Grashey, scapular Y, and axillary views of the left shoulder. FINDINGS: The bones and soft tissues are normal. No fracture. Glenohumeral and acromioclavicular alignment is anatomic with normal joint space. No abnormal soft tissue calcifications. XR/XR shoulder LT min 2V IMPRESSION: Normal left shoulder. Electronically signed by: Nav Torres DO 07/31/2024 02:55 PM EST
== END 2024-07-31 12:30 | disposition home or self-care (01) ==
LOC: HO.HMGCX 12:29
PROVIDERS: PCP Physician Assistant; Visit Provider Physician Assistant Medical
DX: M25.512 Pain in left shoulder (principal)
CPT/HCPCS: 73030; 99212

== ENCOUNTER 2024-07-31 12:29 | Outpatient (AMB) | payer OTHER, SELFPAY ==
--- NOTE | 2024-07-31 12:54 | AM.OFFWIN_ITS ---
Intake Vital Signs 07/31/24 12:55 Weight 311 lb BP 124/90 H Blood Pressure Location Rt brachial Position Sitting Pulse 82 Pulse Source Pulse Oximeter Pulse Oximetry (%) 98 Oxygen Delivery Method Room Air Intake Visit Reasons: EP Pain in LT upper shoulder/arm Intake Note: Patient here for left shoulder pain w/limited ROM since this morning Patient Tobacco Use Status: Never used Tobacco Allergies amlodipine Adverse Reaction (Verified 07/31/24 12:56) Chest Pain Do you need a note to return to daycare/school/sports/work: No HPI HPI Comments History of Present Illness Details This is a 29-year-old male who presents to the office today for left shoulder pain. Patient states he started experiencing left shoulder pain and decreased range of motion when he woke up this morning. He states he has no shoulder pain at rest; however, any shoulder movement brings on the pain. He describes the pain as a ?tightness? in his shoulder and upper arm. He feels as though his shoulder gets ?locked? with certain movements. He states he does occasionally have pain radiating into his left hand although this is rare. He denies any known trauma or injury. He states he sleeps on his right side so he does not believe that he slept on his shoulder wrong. He denies any associated chest pain, shortness of breath, nausea/vomiting, or diaphoresis/clamminess. He reports a history of high blood pressure but denies any known history of coronary artery disease. [facility] Surgical History [place] teeth removed History of hernia surgery No pertinent past surgical history Family History Father ADHD HTN (hypertension) CAD (coronary artery disease) Hyperlipidemia Insomnia Dysautonomia Colon cancer, Onset Age: 40 Mother Eczema Migraines Social History Housing: Apartment Alcohol intake: current Alcohol intake frequency: holidays/special occasions only Patient Tobacco Use Status: Never used Tobacco e-Cigarette/Vaping Use: Never Used service: No Current occupational status: employed Current occupation: [employer]_ [employer] Cognitive needs: No Hearing needs: No Vision needs: No Review of Systems Const All systems reviewed & are unremarkable except as noted in HPI and below Reports no additional complaints Eyes Reports no additional complaints ENT Reports no additional complaints Card Reports no additional complaints Resp Reports no additional complaints GI Reports no additional complaints Reports no additional complaints Musc Reports no additional complaints Skin/Breast Reports system reviewed and no additional complaints, except as documented Neuro Reports no additional complaints Psych Reports no additional complaints Endo Reports no additional complaints Cedric/Lymph Reports no additional complaints Aller/Immun Reports no additional complaints Physical Exam Vital Signs: Last Vital Signs Pulse 82 07/31/24 12:55 BP 124/90 H 07/31/24 12:55 Pulse Ox 98 07/31/24 12:55 Oxygen Delivery Method Room Air 07/31/24 12:55 Const Other: Vital signs reviewed. Constitutional: Non-toxic appearing. No acute distress. Well-developed and well-nourished. HEENT: Normocephalic and atraumatic. Skin: Warm and dry. No rashes or lesions noted. Neck: Full and painless range of motion. No cervical lymphadenopathy. Cardio: Regular rate and rhythm. No murmurs, gallops, or rubs. No lower extremity edema. No JVD. Pulmonary: No respiratory distress. No accessory muscle usage. Clear to auscultation bilaterally without wheezing, crackles, or rhonchi. Gastrointestinal: Soft, nontender, and nondistended in all 4 quadrants. Musculoskeletal: There is no focal or bony tenderness to palpation of the left shoulder/upper arm. He has decreased active range of motion with flexion, abduction, and external rotation of the left shoulder. He has slightly improved passive range of motion with flexion, adduction, and external rotation of the left shoulder. Neuro: Alert and oriented x4. Cranial nerves 2-12 grossly intact. No focal deficits appreciated. Psych: Normal mood and affect. Assessment & Plan Assessment & Plan (1) Left shoulder pain: Code(s): M25.512 - Pain in left shoulder Qualifiers: Chronicity: acute Qualified Code(s): M25.512 - Pain in left shoulder Plan: This is a 29-year-old male who presented to the walk-in clinic complaining of atraumatic left shoulder pain and decreased range of motion that began this morning. On physical examination, he has painful and decreased active range of motion with flexion, abduction, external rotation but slightly increased passive range of motion. Differential diagnosis includes adhesive capsulitis versus less likely sprain/strain versus less likely fracture/dislocation versus unlikely ACS. An EKG was obtained given patient's history of hypertension and obesity and showed normal sinus rhythm at 67 beats per minute with incomplete right bundle-branch block, which is unchanged from prior EKGs so ACS unlikely at this point. An x-ray of the left shoulder was obtained, which was negative for acute abnormality on my read. Patient was given referral for physical therapy given possible adhesive capsulitis. I recommended symptomatic management including acetaminophen/ibuprofen as needed for pain and heat to the area. He was also given a prescription for p.o. methocarbamol 750 mg 3 times daily as needed for muscle spasms. Patient was advised to follow-up here if he were to develop persistent or worsening symptoms. Patient verbalizes understanding and he is in agreement with the plan. Orders: Orders AMB EKG-In Office Today Z13.6 - Encounter for screening for cardiovascular disorders XR shoulder LT min 2V Today M25.519 - Pain in unspecified shoulder PT Evaluation and Treatment Today M25.512 - Pain in left shoulder Medications: New methocarbamol 750 mg PO TID PRN 14 tabs 0RF muscle spasm Coding Level of Care Code Est Pt Level 3 (34691) Diagnoses Acute pain of left shoulder M25.512 Chronicity: acute
[2024-07-31 12:55] VITALS: BP 124/90; PULSE 82; O2SAT 98
== END 2024-07-31 14:02 | disposition home or self-care (01) ==
PROVIDERS: PCP Physician Assistant; Visit Provider Physician Assistant Medical
DX: M25.512 Pain in left shoulder (principal)

== ENCOUNTER 2024-12-01 14:30 | Outpatient (REF) | payer OTHER, SELFPAY ==
[2024-12-01 15:15] LABS: Hematocrit 39.6 % (42.0-52.0); Mean Corpuscular HGB Conc 32.8 g/dl (31.0-36.0); Mean Corpuscular Hemoglobin 27.1 pg (27.0-33.0); Mean Corpuscular Volume 82.5 fL (80.0-98.0); Mean Platelet Volume 10.2 fL (9.4-12.4); Platelet Count 255 X10*3/uL (160-400); Red Cell Distribution Width 13.3 % (11.0-16.0); White Blood Count 9.7 X10*3/uL (4.8-10.8)
[2024-12-01 16:09] LABS: Creatinine Urine 84.45 mg/dL; Microalbumin Urine < 5.0 mg/L
[2024-12-01 16:18] LABS: Alanine Aminotransferase 27 U/L (0-40); Albumin Level 4.1 g/dL (3.5-5.0); Anion Gap 12 (12-20); Aspartate Amino Transferase 21 U/L (5-37); Bilirubin Total 0.5 mg/dL (0.0-1.0); Blood Urea Nitrogen 11 mg/dL (9-16); Calcium 9.1 mg/dL (8.4-10.2); Carbon Dioxide 29 mmol/L (22-29); Chloride 104 mmol/L (96-108); Cholesterol 200 mg/dL (<200); Estimated Glomerular Filt Rate > 60; Glucose Fasting 91 mg/dL (60-99); HDL Cholesterol 51 mg/dL (>40); LDL Cholesterol Calculated 130 mg/dL (<100); Potassium 3.6 mmol/L (3.3-5.1); Sodium 141 mmol/L (135-145); Total Protein 7.6 g/dL (6.5-8.0); Triglycerides 95 mg/dL (<150)
--- OUTSIDE RECORDS SUMMARY | 2024-12-01 17:48 | XMS_ITS | Clinical Summary ---
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 03/01/2023 Active metoprolol-hydro CHLOROthiazide (Lopressor HCT) 100-25 MG tablet Take 1 tablet by mouth in the morning. Active lisinopril 40 MG tablet Take 40 mg by mouth in the morning. 04/08/2023 Active hydroCHLOROthiaz sol (HYDRODiuril) 25 MG tablet Take 25 mg by mouth in the morning. 04/08/2023 Active Social History Tobacco Use Types Packs/Day Years Used Date Smoking Tobacco: Never Smokeless Tobacco: Never Tobacco Cessation:Counseling Given: Not Answered Alcohol Use Standard Drinks/Week Comments Never 0 (1 standard drink = 0.6 oz pur e alcohol) Sex and Gender Information Value Date Recorded Sex Assigned at Male 07/23/2022 10:39 AM EDT Legal Sex Male 10:39 AM EDT Gender Identity Choose not to disclose 10:39 AM EDT Sexual Orientation Choose not to disclose 2021 10:39 AM EDT Last Filed Vital Signs Vital Sign Reading Time Taken Comments Blood Pressure 123/80 04/12/2023 1:08 PM EDT Pulse - - Temperature - - Respiratory Rate - - Oxygen Saturation - - Inhaled Oxygen Concentration - - Weight - - Height - - Body Mass Index - - Plan of Treatment Health Maintenance Due Date Last Done Comments Depression Screening 1994 HIV Screening 1994 SDOH Screening 1994 Alcohol/Substance Use Screening 2006 Family Planning (PISQ) 2009 Hepatitis C Screening 01/07/2012 Hepatitis B Vaccines (1 of 3 - 19+ 3-dose series) 2013 Dental Oral Exam 11/03/2023 05/02/2023, 08/25/2021 Dental Prophylaxis 12/11/2023 06/11/2023 Dental X-Ray: Bitewings 05/03/2024 05/02/20 23, 08/25/2021 COVID-19 Vaccine (4 - 2023-2 5 season) 2024 01/31/2022, 04/11/2021, 03/14/2021 Influenza Vaccine (#1) 2024 , 07/10/2018 Tobacco Screening 06/11/2024 06/11/2023 Dental X-Ray: Full Mouth 05/03/2026 023, 08/25/2021 DTaP/Tdap/Td Vaccines (2 - T d or Tdap) 12/11/2032 12/11/2022 Zoster Vaccines (1 of 2) 01/07/2044 RSV Patients and Patients Aged 60 years or older (1 - 1-dose 75+ series) 2069 HIB Vaccines Aged Out No longer eligi ble based on patient's age to complete this topic HPV Vaccines Aged Out No longer eligi ble based on patient's age to complete this topic Hepatitis A Vaccines Aged Out No long er eligible based on patient's age to complete this topic IPV Vaccines Aged Out No longer eligi ble based on patient's age to complete this topic Meningococcal Vaccine Aged Out No manfred kaley eligible based on patient's age to complete this topic Pneumococcal Vaccine: Pediatrics (0 to 5 Years) and At-Risk Patients (6 to 49) Years) Aged Out No longer eligible b ased on patient's age to complete this topic RSV under 20 months Aged Out No longe r eligible based on patient's age to complete this topic Rotavirus Vaccines Aged Out No longer eligible based on patient's age to complete this topic Procedures Procedure Name Priority Date/Time Associated Diagnosis Comments PROPHYLAXIS - ADULT Routine 06/11/2023 2 :00 PM EDT INTRAORAL - COMPLETE SERIES OF RADIOGRAPHIC IMAGES Routine 05/02/2023 3:00 PM EDT COMPREHENSIVE ORAL EVALUATION - NEW OR ESTABLISHED PATIENT Routine 05/02/2023 3:00 PM EDT from Last 3 Months or Most Recently Relevant to Health Maintenance Insurance [facility] AD[facility]
[2024-12-01 18:23] LABS: Alkaline Phosphatase 98 U/L (39-117)
== END 2024-12-01 14:31 | disposition home or self-care (01) ==
LOC: HO.LAB 14:30
PROVIDERS: PCP Physician Assistant; Visit Provider Physician Assistant
DX: I10 Essential (primary) hypertension (principal); E78.00 Pure hypercholesterolemia, unspecified
CPT/HCPCS: 36415; 80053; 80061; 82043; 82570; 85027

== ENCOUNTER 2024-12-17 13:16 | Outpatient (AMB) | payer OTHER, SELFPAY ==
--- NOTE | 2024-12-17 13:25 | MHC.PC.OV ---
Vital Signs 12/17/24 13:39 Height 5 ft 6 in Weight 319 lb 2 oz BMI 51.5 BP 142/60 H Blood Pressure Location Lt brachial Position Sitting Pulse 89 Pulse Source Pulse Oximeter Temp 97.1 F Temp Source Temporal Artery Scan Pulse Oximetry (%) 97 Oxygen Delivery Method Room Air Intake Visit Reasons: Annual Exam Intake Note: Patient is here today for a physical. 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 Required: No Accompanied by: Self / Same As Patient Allergies amlodipine Adverse Reaction (Verified 12/17/24 13:47) Chest Pain Medication List - Last Reconciled 12/17/24 by Timmy Espitia PA-C hydrochlorothiazide 25 mg PO DAILY lisinopril 40 mg PO DAILY methocarbamol 750 mg PO TID PRN metoprolol succinate ER 100 mg PO DAILY miscellaneous medical supply (Blood Pressure Cuff) As directed omeprazole 20 mg PO DAILY Tobacco use date assessed: 12/17/24 Dental Screening Dental Screen Date: 12/17/24 Did you have a dental visit in the last 12 months?: Yes Did you have a dental problem in the last 6 months where you did not have access to dental care?: No Was dental information given to patient?: Patient has dentist HPI Annual Exam HPI Details Doron is a 29 yo male here today for a routine annual physical Patient has a past medical history significant for morbid obesity, HTN, JAKE with CPAP use, symptomatic PVCs who presents for follow up. Concern--> continues to be told he is issues with his attention and focus. 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 He would like evaluation by Psychiatry about ADD disorder. We did discuss non stimulant medication for ADD though he will like to hold off on this for now. .. ? Hypertension: blood pressure acceptable today in office acceptable, ? Denies any headaches, vision issues or chest discomforts. .. .? Symptomatic PVCs:? He is followed by [facility], continues on metoprolol under mg daily. Not had any heart palpitations since starting medication. .. Obesity: Unfortunately gained some weight since last office visit. Patient does understand his BMI is well over 30, has noted some weight loss since last office visit. Reports his diet has not been good as it is very expensive to eat healthy he reports. .. ? Obstructive sleep apnea:? Followed by sleep specialty. he is compliant with CPAP machine nightly.? He reports he gets good rest now.? Vaccine: UTD With Tdap and COVID. Considering PCV, Did not get flu shot this flu season. Laboratory Tests 12/11/22 12/16/23 12/16/23 16:02 12:12 Unknown RBC 4.91 Hgb 13.6 L Creatinine 0.78 Cholesterol 235 203 H LDL Cholesterol, C alc 137 H Urine Microalbumin 12/01/24 12/01/24 14:57 15:04 RBC 4.80 Hgb 13.0 L Creatinine Cholesterol 200 H LDL Cholesterol, C alc 130 H Urine Microalbumin < 5.0 PFSH Surgical History [place] teeth removed History of hernia surgery No pertinent past surgical history Family History Father ADHD HTN (hypertension) CAD (coronary artery disease) Hyperlipidemia Insomnia Dysautonomia Colon cancer, Onset Age: 40 Mother Eczema Migraines Social History (Updated 12/17/24 @ 13:50 by Timmy Espitia PA-C) Housing: Apartment Alcohol intake: current Alcohol intake frequency: holidays/special occasions only Patient Tobacco Use Status: Never used Tobacco e-Cigarette/Vaping Use: Never Used service: No Current occupational status: employed Current occupation: [employer] Cognitive needs: No Hearing needs: No Vision needs: No Questionnaire PHQ-9 Over the last 2 weeks, how often have you been bothered by any of the following problems? 1. Little interest or pleasure in doing things: not at all 2. Feeling down, depressed, or hopeless: not at all 3. Trouble falling or staying asleep, or sleeping too much: nearly every day 4. Feeling tired or having little energy: more than half the days 5. Poor appetite or overeating: not at all 6. Feeling bad about yourself - or that you are a failure or have let yourself or your family down: not at all 7. Trouble concentrating on things, such as reading the newspaper or watching television: more than half the days 8. Moving or speaking so slowly that other people could have noticed. Or the opposite - being so fidgety or restless that you have been moving around a lot more than usual: not at all 9. Thoughts that you would be better off or of hurting yourself in some way: not at all Total score: 7 [id number] - PHQ-9 Billing: Yes Source: Developed by Drs. Johnathan Marte, Vannessa Segura, Lion Jacobs and colleagues, with an educational adriana from [employer]. Thrive Questionnaire Date Thrive assessed: 12/17/24 I am a: Patient What is your living situation today?: I have a steady place to live Within the past 12 months, did the food you bought not last and you didn't have the money to get more?: Never true Within the past 12 months, did you worry whether your food would run out before you got money to buy more?: Never true Do you have trouble paying for medicines?: No Do you have trouble getting transportation to medical appointments?: No Do you have trouble paying your heating and electricity bill?: No Do you have trouble taking care of your child, family member or friend?: No Do you have trouble with day-to-day activities such as bathing, preparing meals, shopping, managing finances, etc.?: No Are you currently unemployed and looking for a job?: No Are you interested in more education?: No Please select the resources that you would like help with: None Currently or been in a relationship where the following occur: No concerns reported THRIVE Score: 0 AUDIT C Alcohol Use Questionnaire (AUDIT-C) 1. How often do you have a drink containing alcohol?: Monthly or less 2. How many drinks containing alcohol do you have on a typical day when you are drinking?: 3 or 4 3. How often do you have six or more drinks on one occasion?: Never Total Score: 2 JAD-7 AMB Questionnaire JAD-7 Date JAD - 7 assessed: 12/17/24 Feeling nervous, anxious, or on edge: 0 = Not at all Not being able to stop or control worryin = Not at all Worrying too much about different things: 0 = Not at all Trouble relaxin = Not at all Being so restless that it is hard to sit still: 2 = More than half the days Becoming easily annoyed or irritable: 0 = Not at all Feeling afraid as if something awful might happen: 0 = Not at all Total JAD-7 score (0-4 normal; 5-9 mild; 10-14 moderate; 15-21 severe): 2 Source: Developed by Drs. Johnathan Marte, Vannessa Segura, Lion Jacobs and colleagues, with an educational adriana from [employer]. JAD-7 Assessment Billing JAD-7 Assessment Tool: JAD-7 Assessment 96022 Review of Systems Const Denies body aches, Denies chills, Denies excessive sweating, Denies fatigue, Denies fever(s) and Denies headache(s) Eyes Denies blurry vision ENT Denies dysphagia, Denies vertigo, Denies dizziness, Denies headache(s), Denies hearing loss and Denies tinnitus Card Denies chest pain, Denies chest pain with activity, Denies syncope, Denies irregular heart rhythm and Denies dyspnea Resp Denies chest congestion, Denies cough, Denies hemoptysis, Denies dyspnea and Denies wheezing GI Denies abdominal pain, Denies melena, Denies hematochezia, Denies coffee ground emesis, Denies dysphagia, Denies diarrhea, Denies nausea and Denies vomiting Denies difficulty urinating, Denies dysuria, Denies urinary frequency, Denies urinary hesitancy and Denies urinary urgency Musc Denies arthralgias, Denies limited range of motion, Denies muscle cramps and Denies muscle weakness Skin/Breast Denies rash and Denies skin ulcer Neuro Denies Abnormal speech present, Denies confusion, Denies vertigo, Denies dizziness, Denies syncope, Denies headache(s), Denies memory loss and Denies seizure-like activity Psych Denies anxiety, Denies confusion, Denies depression, Denies memory loss, Denies panic attacks and Denies paranoia Endo Denies excessive sweating, Denies fatigue, Denies flushing, Denies polydipsia and Denies polyuria Aller/Immun Denies wheezing Physical exam (Primary Care) Vital Signs: Last Vital Signs Temp 97.1 F 12/17/24 13:39 Pulse 89 12/17/24 13:39 BP 142/60 H 12/17/24 13:39 Pulse Ox 97 12/17/24 13:39 Oxygen Delivery Method Room Air 12/17/24 13:39 BMI result Body Mass Index 51.5 BMI Assessment/Plan discussion: High BMI High, discussed plan: lifestyle, weight reduction, dietary and physical activity Tobacco/Smoking Status: Tobacco use Status Tobacco use date assessed 12/17/24 12/17/24 13:44 Patient Tobacco Use Status Never used Tobacco 12/17/24 13:26 e-Cigarette/Vaping Use Never Used 12/17/24 13:26 PHQ-9: PHQ-9 Score PHQ-9: Total score 7 12/17/24 13:44 Thrive Assessment: Date of Thrive Assessment Date Thrive assessed 12/17/24 12/17/24 13:44 Currently or been in a relationship where the following occur: No concerns reported Const General: cooperative, comfortable, no acute distress, alert and awake; No confusion Orientation/consciousness: oriented to person, oriented to place, patient oriented x3 and No confusion HENMT Head: Yes normocephalic Ears: external ears normal and TM's normal bilaterally Face and sinus: No sinus tenderness Mouth: Normal oral and palatal mucosa present and tongue normal Teeth and gingiva: dentition normal and gingiva normal Throat: Yes posterior oropharynx normal, Yes tonsils normal and Yes uvula midline Eyes Conjunctivae: conjunctivae normal Sclerae: sclerae normal Pupils: Equal, round and reactive pupils present EOM: EOMs intact bilaterally Direct Ophthalmoscopy: No no photophobia Neck Neck: Yes no lymphadenopathy, No tender and Yes no JVD Thyroid: Thyroid normal Carotids: no bruits Chest Chest palpation & inspection: no tenderness Resp Effort & Inspection: normal respiratory effort, no audible wheezes, not labored and no stridor Auscultation: no crackles, no rales, no rhonchi and no wheezes Cardio Jugular venous distension: no JVD Rate: regular rate, not bradycardic and not tachycardic Rhythm: regular rhythm Bruits: no carotid bruits Peripheral pulses: Peripheral pulses 2+ throughout GI Inspection: Yes normal to inspection, No abdominal wall ecchymosis and No visible herniation Palpation (GI): Soft to palpation, nontender, no guarding, not rigid and No hepatosplenomegaly present Auscultation: normoactive bowel sounds General: Yes no CVA tenderness Back/Spine/Pelvis Back: no CVA tenderness and No back tenderness Cervical Spine: cervical ROM normal Thoracic/Lumbar Spine: thoracic and lumbar spine normal to inspection, straight leg raise negative bilaterally, No thoraco-lumbar ROM limited and No lumbar spinal tenderness Skin Lesions: no lesions Rashes: no rashes Wounds: no wounds Neuro General: oriented to person, oriented to place, patient oriented x3, CN's II-XI intact bilaterally and No confusion Cranial nerves: Yes Equal, round and reactive pupils present and Yes Normal accommodation reflex present Cognition (Neuro): normal cognition Speech: No Abnormal speech present Gait exam (Neuro): Normal gait present Motor exam (neuro): 5/5 motor strength present throughout Extrem Right upper extremity: full ROM; no cyanosis Left upper extremity: full ROM; no cyanosis Right lower extremity: no edema Left lower extremity: no edema Psych Appearance: grossly normal Mental Status: mental status grossly normal Affect: normal affect Attitude: cooperative Thought process: Normal thought process present Coding Level of Care Code Est Pt Prev Care 18-39y(48048) Diagnoses Annual physical exam Z00.00 JAKE (obstructive sleep apnea) G47.33 Primary hypertension I10 Hypertension type: primary hypertension Class 3 obesity E66.813 Pure hypercholesterolemia E78.00 Hyperlipidemia type: pure hypercholesterolemia Attention or concentration deficit R41.840 Attention deficit type: attention or concentration deficit Additional Codes JAD-7 Assessment Billing - JAD-7 Assessment Tool: JAD-7 Assessment 60164 ([id number]) PHQ-9 - 17486 - PHQ-9 Billing: Yes ([id number]) Assessment & Plan Assessment & Plan (1) Annual physical exam: Code(s): Z00.00 - Encounter for general adult medical examination without abnormal findings Category: Medical Plan: As per HPI (2) JAKE (obstructive [facility]): [facility] Results AHI 56/hr; O2 marlon 78% Code(s): G47.33 - Obstructive sleep apnea (adult) (pediatric) Category: Medical Plan: Patient uses his CPAP machine on nightly basis. (3) HTN (hypertension): Code(s): I10 - Essential (primary) hypertension Category: Medical Qualifiers: Hypertension type: primary hypertension Qualified Code(s): I10 - Essential (primary) hypertension Plan: Patient's blood pressure slightly elevated today in office. He continues on metoprolol , hydrochlorothiazide on lisinopril fairly high doses. Unfortunately has gained weight since last office visit. He will work on lifestyle and dietary modifications to reduce his weight in hopes to reduce his blood pressure. We did talk about GLP 1 to help lose weight. Goal blood pressures to be below 140/90 (4) Class 3 obesity: Code(s): E66.813 - Obesity, class 3 Category: Medical Plan: As above patient does understand his BMI is over 50 work on being more physically active and adapt to better eating habits to reduce his weight (5) HLD (hyperlipidemia): Code(s): E78.5 - Hyperlipidemia, unspecified Category: Medical Qualifiers: Hyperlipidemia type: pure hypercholesterolemia Qualified Code(s): E78.00 - Pure hypercholesterolemia, unspecified Plan: Most recent lipid panel showing borderline high cholesterol and LDL. He will continue working on dietary modifications to reduce his cholesterol. (6) ADD (attention deficit disorder): Code(s): F98.8 - Other specified behavioral and emotional disorders with onset usually occurring in childhood and adolescence Category: Medical Qualifiers: Attention deficit type: attention or concentration deficit Qualified Code(s): R41.840 - Attention and concentration deficit Plan: Patient does report being treated for an ADD or OCD diagnosis has a child though had side effects to the medications. He is interested in another psychiatric evaluation for a proper diagnosis . Orders: Referrals Psychiatry Outpatient Consultation Service R41.840 - Attention and concentration deficit Patient Instructions: Goal: Blood pressure to be below 140/90 Barriers: Adherence to physical activity and healthy eating habits
[2024-12-17 13:39] VITALS: BP 142/60; PULSE 89; TEMP 36.2; O2SAT 97; BMI 51.5
== END 2024-12-17 14:01 | disposition home or self-care (01) ==
LOC: HO.HMCH 13:17
PROVIDERS: PCP Physician Assistant; Visit Provider Physician Assistant
DX: Z00.00 Encounter for general adult medical examination without abnormal findings (principal); E66.813 Obesity, class 3; Z68.43 Body mass index [BMI] 50.0-59.9, adult; G47.33 Obstructive sleep apnea (adult) (pediatric); I10 Essential (primary) hypertension; E78.00 Pure hypercholesterolemia, unspecified; R41.840 Attention and concentration deficit

== ENCOUNTER → 2024-12-17 13:16 | Outpatient (BNVA) | payer OTHER, SELFPAY | PROVIDERS: PCP Physician Assistant; Visit Provider Physician Assistant | DX: Z00.00 Encounter for general adult medical examination without abnormal findings (principal); G47.33 Obstructive sleep apnea (adult) (pediatric); I10 Essential (primary) hypertension; E66.813 Obesity, class 3; Z68.43 Body mass index [BMI] 50.0-59.9, adult; E78.00 Pure hypercholesterolemia, unspecified; R41.840 Attention and concentration deficit; Z71.3 Dietary counseling and surveillance | CPT/HCPCS: 96127; 99395 ==

== ENCOUNTER 2025-05-19 13:13 | Outpatient (AMB) | payer OTHER, SELFPAY ==
--- NOTE | 2025-05-19 13:41 | MHC.OFFVIS ---
Vital Signs 05/19/25 13:43 Height 5 ft 6 in Weight 324 lb 1.272 oz BMI 52.3 BP 136/72 Blood Pressure Location Lt brachial Position Sitting Pulse 66 Pulse Source Monitor Intake Visit Reasons: 1 yr f/up Intake Note: 1 yr f/up- Drawer In Required: No Accompanied by: Self / Same As Patient Allergies amlodipine Adverse Reaction (Verified 12/17/24 13:47) Chest Pain Medication List - Last Reconciled 05/19/25 by Curt Parry MD hydrochlorothiazide 25 mg PO DAILY lisinopril 40 mg PO DAILY methocarbamol 750 mg PO TID PRN metoprolol succinate ER 100 mg PO DAILY miscellaneous medical supply (Blood Pressure Cuff) As directed omeprazole 20 mg PO DAILY HPI Comments Details: 30-year-old gentleman with the is difficult to control hypertension and sleep apnea. He also has a obesity. He has been compliant with CPAP. He is currently taking hydrochlorothiazide, lisinopril and metoprolol succinate. Blood pressure control is good. He does not do any exercise and I have advised him to become physically active. [facility] Surgical History [place] teeth removed History of hernia surgery No pertinent past surgical history Family History Father ADHD HTN (hypertension) CAD (coronary artery disease) Hyperlipidemia Insomnia Dysautonomia Colon cancer, Onset Age: 40 Mother Eczema Migraines Social History Housing: Apartment Alcohol intake: current Alcohol intake frequency: holidays/special occasions only Patient Tobacco Use Status: Never used Tobacco e-Cigarette/Vaping Use: Never Used service: No Current occupational status: employed Current occupation: [employer] Cognitive needs: No Hearing needs: No Vision needs: No Review of Systems Const Denies chills, Denies fatigue, Denies fever(s), Denies frequent falls, Denies weakness, Denies weight gain and Denies weight loss ENT Denies dizziness Card Denies chest pain, Denies leg edema, Denies lightheadedness, Denies palpitations, Denies dyspnea and Denies dyspnea on exertion Resp Denies cough, Denies dyspnea and Denies dyspnea on exertion GI Denies hematochezia Musc Denies abnormal gait, Denies muscle weakness, Denies numbness, Denies radiating pain into limb and Denies tingling Neuro Denies abnormal gait, Denies dizziness, Denies frequent falls, Denies numbness, Denies tingling and Denies weakness Endo Denies fatigue and Denies palpitations Physical Exam Vital Signs: Last Vital Signs Pulse 66 05/19/25 13:43 BP 136/72 05/19/25 13:43 BMI result Body Mass Index 52.3 GENERAL APPEARANCE: in no acute distress, pleasant. NECK: no carotid bruit, no jugular venous distention. SKIN: no suspicious lesions, warm and dry. HEART: no murmurs, regular rate and rhythm. LUNGS: clear to auscultation bilaterally. ABDOMEN: soft, nontender. EXTREMITIES: no edema. PERIPHERAL PULSES: equal. NEUROLOGIC: No gross deficits, AAO X 3 Office Procedures EKG Details: Normal sinus rhythm with sinus arrhythmia 66 beats per minute, nonspecific intraventricular conduction delay, QTC 442 milliseconds, QRS 118 milliseconds. [id number], Complete Assessment & Plan Assessment & Plan (1) HTN (hypertension): Code(s): I10 - Essential (primary) hypertension Category: Medical Qualifiers: Hypertension type: primary hypertension Qualified Code(s): I10 - Essential (primary) hypertension Plan Pleasant 30 year gentleman with hypertension and obstructive sleep apnea. He is currently on hydrochlorothiazide 25 mg daily, lisinopril 40 mg daily and, Toprol XL 100 mg. He is compliant with CPAP. His blood pressure control has been good. He should continue same medications for now. We discussed about weight loss and the fact that a lot of his problems are linked with obesity. He has sleep apnea and uncontrolled hypertension which is a byproduct of sleep apnea in his case. He will definitely benefit from weight loss. Thank you for allowing me to participate in the care of your patient. Please feel free to contact me if you have any questions. Coding Level of Care Code Est Pt Level 4 (20170) Diagnoses Primary hypertension I10 Hypertension type: primary hypertension CPT Codes EKG - CPT: [id number], Complete ([id number])
[2025-05-19 13:43] VITALS: BP 136/72; PULSE 66; BMI 52.3
--- OUTSIDE RECORDS SUMMARY | 2025-05-19 13:55 | XMS_ITS | Clinical Summary ---
Author Organization [employer] Address [address] [place] [address] Care Team Providers Care Chief Financial Officer Name Role Phone Unavailable Primary Care Provider [...] 1994 HIV Screening 1994 SDOH Screening 1994 Disability Screening 1994 Alcohol/Substance Use Screening 2006 Family Planning (PISQ) 2009 HPV Vaccines (1 - 3-dose series) 2009 Hepatitis C Screening 01/07/2012 Hepatitis B Vaccines (1 of 3 - 19+ 3-dose series) 2013 Dental Oral Exam 11/03/2023 05/02/2023, 08/25/2021 Dental Prophylaxis 12/11/2023 06/11/2023 Dental X-Ray: Bitewings 05/03/2024 05/02/20 23, 08/25/2021 COVID-19 Vaccine (4 - 2023-2 5 season) 2024 01/31/2022, 04/11/2021, 03/14/2021 Tobacco Screening 06/11/2024 06/11/2023 Influenza Vaccine (#1) 2025 0, 07/10/2018 Dental X-Ray: Full Mouth 05/03/2026 023, 08/25/2021 [...] patient's age to complete this topic Meningococcal B Vaccine Aged Out No l onger eligible based on patient's age to complete this topic Meningococcal Vaccine Aged Out No manfred kaley eligible based on patient's age to complete this topic Pneumococcal Vaccine: Pediatrics (0 to 5 Years) and At-Risk Patients (6 to 49) Years Aged Out No longer eligible b ased [...] Most Recently Relevant to Health Maintenance Insurance [facility] MEDICAID STAND ADULT
== END 2025-05-19 14:06 | disposition home or self-care (01) ==
LOC: HO.HCS 13:14
PROVIDERS: PCP Physician Assistant; Visit Provider Internal Medicine Cardiovascular Disease
DX: I10 Essential (primary) hypertension (principal)
CPT/HCPCS: 93010; 99214

== ENCOUNTER → 2025-05-19 13:13 | Outpatient (BNVA) | payer OTHER, SELFPAY | PROVIDERS: PCP Physician Assistant; Visit Provider Internal Medicine Cardiovascular Disease | DX: I10 Essential (primary) hypertension (principal) | CPT/HCPCS: 93005; 99212 ==

== ENCOUNTER 2025-06-10 12:17 | Outpatient (AMB) | payer OTHER, SELFPAY ==
--- NOTE | 2025-06-10 12:21 | A.OFFVIS_ITS ---
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 Pt denies any significant interval medical history changes. Pt reports he is sleeping well with APAP. Has good daytime energy. 90 day ( 03/12/25-06/09/25)APAP compliance report reveals APAP 5-20 cmH2O with max pressure of 13.4cmH2O; 7 hrs 41 min usage on days used; overall usage of 100% with usage > 4 hours of 100%; and residual AHI of 01.2/hr. ? PFSH Surgical History [place] teeth removed History of hernia surgery No pertinent past surgical history Family History Father ADHD HTN (hypertension) CAD (coronary artery disease) Hyperlipidemia Insomnia Dysautonomia Colon cancer, Onset Age: 40 Mother Eczema Migraines Social History Housing: Apartment Alcohol intake: current Alcohol intake frequency: holidays/special occasions only Patient Tobacco Use Status: Never used Tobacco e-Cigarette/Vaping Use: Never Used service: No Current occupational status: employed Current occupation: [employer] Cognitive needs: No Hearing needs: No Vision needs: No Physical Exam Vital Signs: Last Vital Signs Pulse 76 06/10/25 12:22 BP 144/82 H 06/10/25 12:22 Pulse Ox 97 06/10/25 12:22 Oxygen Delivery Method Room Air 06/10/25 12:22 BMI result Body Mass Index 51.8 Const General: no acute distress Orientation/consciousness: patient oriented x3 HEENT Head: Yes normocephalic Resp Effort & Inspection: normal respiratory effort and able to speak in complete sentences Neuro General: patient oriented x3 Psych Mental Status: mental status grossly normal Speech and movement: Clear speech present Attitude: cooperative Assessment & Plan Assessment & Plan (1) JAKE (obstructive sleep apnea): Comment: [facility] 10/2018 Results AHI 56/hr; O2 marlon 78% Code(s): G47.33 - Obstructive sleep apnea (adult) (pediatric) Category: Medical Plan Continue APAP - cmH2O nightly > 4 hours, as pt continues to have good clinical effect from use. Clean CPAP machine and supplies routinely. Change CPAP supplies routinely. Pt to contact us or respiratory company with any questions or concerns. f/u in 1 yr w/ CPAP clinic or sooner prn. Coding Level of Care Code Est Pt Level 4 (43273) Diagnoses JAKE (obstructive sleep apnea) G47.33
[2025-06-10 12:22] VITALS: BP 144/82; PULSE 76; O2SAT 97; BMI 51.8
--- OUTSIDE RECORDS SUMMARY | 2025-06-10 14:31 | XMS_ITS | Clinical Summary ---
Author Organization [employer] Address [address] [place] [address] Care Team Providers Care Rural Electrification Engineer Name Role Phone Unavailable Primary Care Provider [...] Dental X-Ray: Bitewings 05/03/2024 05/02/20 23, 08/25/2021 Tobacco Screening 06/11/2024 06/11/2023 COVID-19 Vaccine (4 - 2024-2 6 season) 2025 01/31/2022, 04/11/2021, 03/14/2021 Influenza Vaccine (#1) 2025 0, 07/10/2018 Dental [...] Most Recently Relevant to Health Maintenance Insurance [facility] MEDICAID STAND ADULT
== END 2025-06-10 12:43 | disposition home or self-care (01) ==
LOC: HO.HSMS 12:18
PROVIDERS: PCP Physician Assistant; Visit Provider Psychiatry & Neurology Neurology
DX: G47.33 Obstructive sleep apnea (adult) (pediatric) (principal)
CPT/HCPCS: 99214

== ENCOUNTER → 2025-06-10 12:17 | Outpatient (BNVA) | payer OTHER, SELFPAY | PROVIDERS: PCP Physician Assistant; Visit Provider Psychiatry & Neurology Neurology | DX: G47.33 Obstructive sleep apnea (adult) (pediatric) (principal) | CPT/HCPCS: 99212 ==

== ENCOUNTER 2025-06-21 13:44 | Outpatient (AMB) | payer OTHER, SELFPAY ==
--- NOTE | 2025-06-21 14:04 | MHC.PC.OV ---
Vital Signs 06/21/25 14:06 Height 5 ft 6 in Weight 320 lb 2 oz BMI 51.7 BP 110/70 Blood Pressure Location Lt brachial Position Sitting Pulse 76 Pulse Source Pulse Oximeter Temp 97.3 F Temp Source Temporal Artery Scan Pulse Oximetry (%) 97 Oxygen Delivery Method Room Air Intake Visit Reasons: f/u HTN/ Obesity Intake Note: Patient is here to follow up on HTN, Obesity. Metal Leaf Layer Required: No Brake Coupler Dinkey: Not Required per policy Accompanied by: Self / Same As Patient Allergies amlodipine Adverse Reaction (Verified 06/21/25 14:42) Chest Pain Medication List - Last Reconciled 06/21/25 by Timmy Espitia PA-C hydrochlorothiazide 25 mg PO DAILY lisinopril 40 mg PO DAILY metoprolol succinate ER 100 mg PO DAILY miscellaneous medical supply (Blood Pressure Cuff) As directed omeprazole 20 mg PO DAILY Tobacco use date assessed: 06/21/25 Dental Screening Dental Screen Date: 12/17/24 HPI f/u HTN/ Obesity HPI Details Doron is a 30 yo male here today for a follow-up visit Patient has a past medical history significant for morbid obesity, HTN, JAKE with CPAP use, symptomatic PVCs who presents for follow up. Concern--> The patient reports experiencing a sensation of fullness in the right ear, described as feeling like cotton, which occurs intermittently and resolves spontaneously. This sensation has been persistent for a long time, and the patient denies any known allergies. The patient also reports nasal congestion, particularly when lying down, with one side feeling obstructed, though it is not consistently the same side. The patient has tried nasal sprays but does not tolerate them well. Also? ADD: continues to be told he is issues with his attention and focus. 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 He would like evaluation by Psychiatry about ADD disorder. We did discuss non stimulant medication for ADD though he will like to hold off on this for now. .. ? Hypertension: blood pressure acceptable today in office acceptable, ? Denies any headaches, vision issues or chest discomforts. .. .? Symptomatic PVCs:? He is followed by [facility], continues on metoprolol under mg daily. Not had any heart palpitations since starting medication. .. Obesity: Unfortunately gained some weight since last office visit. Patient does understand his BMI is well over 30, has noted some weight loss since last office visit. Reports his diet has not been good as it is very expensive to eat healthy he reports. .. ? Obstructive sleep apnea:? Followed by sleep specialty. he is compliant with CPAP machine nightly.? He reports he gets good rest now.? [facility] Surgical History [place] teeth removed History of hernia surgery No pertinent past surgical history Family History Father ADHD HTN (hypertension) CAD (coronary artery disease) Hyperlipidemia Insomnia Dysautonomia Colon cancer, Onset Age: 40 Mother Eczema Migraines Social History Housing: Apartment Alcohol intake: current Alcohol intake frequency: holidays/special occasions only Patient Tobacco Use Status: Never used Tobacco e-Cigarette/Vaping Use: Never Used Second Hand Smoke Exposure: No service: No Current occupational status: employed Current occupation: [employer] Cognitive needs: No Hearing needs: No Vision needs: No Questionnaire Thrive Questionnaire Date Thrive assessed: 12/17/24 I am a: Patient What is your living situation today?: I have a steady place to live Within the past 12 months, did the food you bought not last and you didn't have the money to get more?: Never true Within the past 12 months, did you worry whether your food would run out before you got money to buy more?: Never true Do you have trouble paying for medicines?: No Do you have trouble getting transportation to medical appointments?: No Do you have trouble paying your heating and electricity bill?: No Do you have trouble taking care of your child, family member or friend?: No Do you have trouble with day-to-day activities such as bathing, preparing meals, shopping, managing finances, etc.?: No Are you currently unemployed and looking for a job?: No Are you interested in more education?: No Please select the resources that you would like help with: None Currently or been in a relationship where the following occur: No concerns reported THRIVE Score: 0 JAD-7 AMB Questionnaire JAD-7 Date JAD - 7 assessed: 03/27/25 Source: Developed by Drs. Johnathan Marte, Vannessa Segura, Lion Jacobs and colleagues, with an educational adriana from [employer]. Review of Systems Const Denies headache(s) Eyes Denies loss of vision ENT Denies vertigo, Denies dizziness, Denies headache(s) and Denies sore throat Card Denies chest pain, Denies leg edema and Denies lightheadedness Resp Denies cough, Denies hemoptysis and Denies wheezing GI Denies abdominal pain, Denies melena, Denies constipation, Denies diarrhea and Denies vomiting Denies dysuria, Denies urinary frequency and Denies urinary urgency Musc Denies arthralgias, Denies joint swelling, Denies numbness and Denies tingling Neuro Denies Abnormal speech present, Denies behavioral changes, Denies vertigo, Denies dizziness, Denies headache(s), Denies loss of vision, Denies memory loss, Denies numbness and Denies tingling Psych Denies anxiety, Denies behavioral changes, Denies depression, Denies memory loss and Denies panic attacks Cedric/Lymph Denies easy bleeding and Denies easy bruising Aller/Immun Denies wheezing Physical exam (Primary Care) Vital Signs: Last Vital Signs Temp 97.3 F 06/21/25 14:06 Pulse 76 06/21/25 14:06 BP 110/70 06/21/25 14:06 Pulse Ox 97 06/21/25 14:06 Oxygen Delivery Method Room Air 06/21/25 14:06 BMI result Body Mass Index 51.7 BMI Assessment/Plan discussion: High BMI High, discussed plan: lifestyle, weight reduction, dietary and physical activity Tobacco/Smoking Status: Tobacco use Status Tobacco use date assessed 06/21/25 06/21/25 14:09 Patient Tobacco Use Status Never used Tobacco 06/21/25 14:09 e-Cigarette/Vaping Use Never Used 06/21/25 14:09 Thrive Assessment: Date of Thrive Assessment Date Thrive assessed 12/17/24 06/21/25 14:09 Currently or been in a relationship where the following occur: No concerns reported Const General: healthy appearing, no acute distress, alert and awake Nutritional Appearance: well nourished Orientation/consciousness: oriented to person, oriented to place and oriented to time HENMT Ears: TM's normal bilaterally General nose exam: Normal nasal mucous membranes and turbinates present Eyes Conjunctivae: conjunctivae normal Sclerae: sclerae normal Pupils: Equal, round and reactive pupils present Neck Neck: Yes no lymphadenopathy and Yes no JVD Thyroid: Thyroid normal Carotids: no bruits Resp Effort & Inspection: normal respiratory effort and not tachypneic Auscultation: no crackles, no rales, no rhonchi and no wheezes Cardio Rate: regular rate Rhythm: regular rhythm Heart sounds: no murmurs and normal S1 and S2 GI Palpation (GI): Soft to palpation, nontender, no hepatomegaly and no splenomegaly Auscultation: normal bowel sounds Skin General skin exam: no rashes or lesions noted and dry skin Neuro General: oriented to person, oriented to place and oriented to time Cranial nerves: Yes Equal, round and reactive pupils present Speech: No Abnormal speech present Gait exam (Neuro): Normal gait present Motor exam (neuro): no tremor noted Extrem Right upper extremity: full ROM Left upper extremity: full ROM Right lower extremity: full ROM; no edema Left lower extremity: full ROM; no edema Psych Mental Status: mental status grossly normal Speech and movement: Normal speech and movement present Affect: normal affect Attitude: cooperative Thought process: Normal thought process present Coding Level of Care Code Est Pt Level 4 (11328) Diagnoses Primary hypertension I10 Hypertension type: primary hypertension JAKE (obstructive sleep apnea) G47.33 Class 3 obesity E66.813 Pure hypercholesterolemia E78.00 Hyperlipidemia type: pure hypercholesterolemia Allergic rhinitis due to other allergic trigger, unspecified seasonality J30.89 Allergic rhinitis seasonality: unspecified Allergic rhinitis trigger: other Assessment & Plan Assessment & Plan (1) HTN (hypertension): Code(s): I10 - Essential (primary) hypertension Category: Medical Qualifiers: Hypertension type: primary hypertension Qualified Code(s): I10 - Essential (primary) hypertension Plan: Patient's blood pressure acceptable today in office. He continues on metoprolol , hydrochlorothiazide on lisinopril fairly high doses. Unfortunately has gained weight since last office visit. He will work on lifestyle and dietary modifications to reduce his weight in hopes to reduce his blood pressure. We did talk about GLP 1 to help lose weight. Goal blood pressures to be below 140/90 (2) JAKE (obstructive sleep apnea): Comment: [facility] 10/2018 Results AHI 56/hr; O2 marlon 78% Code(s): G47.33 - Obstructive sleep apnea (adult) (pediatric) Category: Medical Plan: Patient uses his CPAP machine on nightly basis. Continues to follow neuro sleep specialist (3) Class 3 obesity: Code(s): E66.813 - Obesity, class 3 Category: Medical Plan: As above patient does understand his BMI is over 50 work on being more physically active and adapt to better eating habits to reduce his weight (4) HLD (hyperlipidemia): Code(s): E78.5 - Hyperlipidemia, unspecified Category: Medical Qualifiers: Hyperlipidemia type: pure hypercholesterolemia Qualified Code(s): E78.00 - Pure hypercholesterolemia, unspecified Plan: Most recent lipid panel showing borderline high cholesterol and LDL. He will continue working on dietary modifications to reduce his cholesterol. (5) Allergic rhinitis: Code(s): J30.9 - Allergic rhinitis, unspecified Category: Medical Qualifiers: Allergic rhinitis seasonality: unspecified Allergic rhinitis trigger: other Qualified Code(s): J30.89 - Other allergic rhinitis Plan: The plan includes prescribing an antihistamine to address the nasal congestion and potential eustachian tube dysfunction, with instructions to take it nightly to see if it alleviates symptoms. Orders: Orders Lipid Panel 06/21/25 E78.00 - Pure hypercholesterolemia, unspecified Comprehensive [place]. Panel Fast 06/21/25 I10 - Essential (primary) hypertension Microalbumin, Random (w Creat) 06/21/25 I10 - Essential (primary) hypertension Complete Blood Count no Diff 06/21/25 I10 - Essential (primary) hypertension Referrals Psychiatry Referral R41.840 - Attention and concentration deficit Medications: New loratadine 10 mg PO DAILY 90 tabs 1RF 90 days J30.89 - Other allergic rhinitis Refilled lisinopril 40 mg PO DAILY 90 tabs 2RF I10 - Essential (primary) hypertension
[2025-06-21 14:06] VITALS: BP 110/70; PULSE 76; TEMP 36.3; O2SAT 97; BMI 51.7
--- OUTSIDE RECORDS SUMMARY | 2025-06-21 15:22 | XMS_ITS | Clinical Summary ---
Author Organization [employer] Address [address] [place] [address] Care Team Providers Care Quality Rep Name Role Phone Unavailable Primary Care Provider [...] Most Recently Relevant to Health Maintenance Insurance [facility] MEDICAID STAND ADULT
== END 2025-06-21 14:56 | disposition home or self-care (01) ==
LOC: HO.HMCH 13:45
PROVIDERS: PCP Physician Assistant; Visit Provider Physician Assistant
DX: I10 Essential (primary) hypertension (principal); E66.813 Obesity, class 3; Z68.43 Body mass index [BMI] 50.0-59.9, adult; G47.33 Obstructive sleep apnea (adult) (pediatric); E78.00 Pure hypercholesterolemia, unspecified; J30.89 Other allergic rhinitis

== ENCOUNTER → 2025-06-21 13:44 | Outpatient (BNVA) | payer OTHER, SELFPAY | PROVIDERS: PCP Physician Assistant; Visit Provider Physician Assistant | DX: I10 Essential (primary) hypertension (principal); G47.33 Obstructive sleep apnea (adult) (pediatric); E78.00 Pure hypercholesterolemia, unspecified; J30.89 Other allergic rhinitis; E66.813 Obesity, class 3; Z68.43 Body mass index [BMI] 50.0-59.9, adult | CPT/HCPCS: 99212 ==